=== PATIENT | female | born 1980 | race Caucasian/White ===

== ENCOUNTER → 2018-05-10 08:12 | Outpatient (CLI) | payer OTHER, SELFPAY ==
--- NOTE | 2018-05-10 | DI.ECHO.S_ITS ---
[facility] +---------+ : : [address] : : : : [id number] : : : : Phone: [phone]+ Echocardiogram Report + + :Name: KEVIN THOMPSON Study Date: 05/10/2018 Height: 64 in : :[facility] Exam Location: [facility] Weight: 189 lb : : Gender: Female BSA: 1.9 m2 : :: 1980 Age: 37 yrs BP: 125/70 mmHg: :Reason For Study: CHEST PAIN : : Performed By: Breonna Page : :Referring: FRANKO HERNANDEZ : + + Interpretation Summary 1. Normal left ventricular size, wall thickness and systolic function with an estimated EF of 60-65% 2. Normal right ventricular size and systolic function. The estimated right atrial pressure is low. 3. No valvular pathology appreciated. There is no old study for comparison Procedure: A two-dimensional transthoracic echocardiogram with color flow and Doppler was performed. The study quality was technically adequate. There is no prior echocardiogram noted for this patient. The patient was in normal sinus rhythm during the exam. Left Ventricle: The left ventricle is normal in size. There is normal left ventricular wall thickness. The ejection fraction is estimated to be 60-65%. No focal wall motion abnormalities appreciated. Assessment of diastolic parameters indicates normal left ventricular diastolic function and normal filling pressures. Right Ventricle: The right ventricle is normal in size and function. Atria: The left atrium is mildly dilated. Right atrial size is normal. No color doppler evidence for an ASD. Mitral Valve: The mitral valve is normal in structure and function. There is trace mitral regurgitation. Aortic Valve: The aortic valve is grossly normal. The aortic valve opens well. The valve appears trileaflet. No aortic regurgitation is present. Tricuspid Valve: The tricuspid valve leaflets are thin and pliable. There is a trace or physiologic amount of tricuspid regurgitation. The right ventricular systolic pressure is estimated at 18 mmHg assuming a right atrial pressure of 3 mm Hg. Pulmonic Valve: The pulmonic valve is not well visualized. Great Vessels: The aortic root is normal size. The ascending aorta is normal in size. The aortic arch is normal in size. The pulmonary is not well visualized. The IVC is of normal diameter and collapses greater than 50% with a sniff. This suggests a low right atrial pressure of 3 mm Hg. Pericardium/ Pleura There is no pericardial effusion. There is no pleural effusion. MMode/2D Measurements & Calculations LVIDd: 4.6 cm Ao root diam: 3.0 cm LVIDs: 2.6 cm asc Aorta Diam: 2.8 cm FS: 43.9 % Ao Arch Diam (Prox Trans): 2.4 cm EPSS: 0.11 cm IVSd: 0.88 cm LVPWd: 0.63 cm LV knox. diameter/BSA (cm/m^2): 2.4 LV sys. diameter/BSA (cm/m^2): 1.3 LA A2 area: 23.6 cm2 RA long axis: 4.6 cm LA A4 area: 20.5 cm2 RA area: 13.5 cm2 LA length (vol): 5.7 cm RA vol: 33.8 ml LA vol: 72.0 ml RA : 17.7 ml/m2 LA vol index: 37.7 ml/m2 IVC diam: 1.5 cm RVD1 (basal): 3.0 cm TAPSE: 2.5 cm Doppler Measurements & Calculations Ao V2 max: 130.5 cm/sec LVOT Max Rob: 83.2 cm/sec Ao V2 mean: 98.6 cm/sec LV V1 max P.8 mmHg Ao max P.8 mmHg LV V1 VTI: 18.6 cm Ao mean P.1 mmHg sev ratio: 0.64 Ao V2 VTI: 29.0 cm MV E max rob: 95.0 cm/sec TR max rob: 191.4 cm/sec MV A max rob: 38.3 cm/sec TR max P.7 mmHg MV E/A: 2.5 PA V2 max: 67.7 cm/sec Med Peak E' Rob: 10.9 cm/sec PA V2 mean: 52.8 cm/sec E/E' med: 8.7 PA mean P.2 mmHg Lat Peak E' Rob: 17.0 cm/sec PA Accel Time: 0.13 sec E/E' lat: 5.6 E/e' average: 7.1 MV dec time: 0.18 sec MV P1/2t: 52.9 msec MV P1/2t max rob: 95.8 cm/sec MVA(P1/2t): 4.2 cm2 Reading Physician:GONZALO
== END ==
PROVIDERS: Visit Provider Student in an Organized Health Care Education/Training Program
DX: R07.9 Chest pain, unspecified (principal)
CPT/HCPCS: 93306

== ENCOUNTER → 2018-05-31 12:04 | Outpatient (CLI) | payer OTHER, SELFPAY | PROVIDERS: PCP Student in an Organized Health Care Education/Training Program | DX: Z23 Encounter for immunization (principal) | CPT/HCPCS: 90471; 90686 ==

== ENCOUNTER 2018-08-31 20:12 | Emergency (ER) | payer OTHER, SELFPAY ==
[2018-08-31 20:17] VITALS: BP 116/84; PULSE 84; RESP 18; TEMP 36.6; O2SAT 100; BMI 31.7
--- NOTE | 2018-08-31 20:21 | DI.RAD.S_ITS ---
PROCEDURE: XR FINGER RT MIN 2V INDICATIONS: shut right thumb in door TECHNIQUE: AP hand, 2 views of the 1st digit acquired. COMPARISON: None. FINDINGS: Bones: No fractures or dislocations. No suspicious bony lesions. Soft tissues: No suspicious soft tissue calcifications. IMPRESSION: 1. No fracture or dislocation. Dictated by: Toy Astudillo M.D. on 08/31/2018 at 20:43 Approved by: Toy Astudillo M.D. on 08/31/2018 at 20:44
--- NOTE | 2018-08-31 21:20 | ED_ITS ---
HPI - Extremity Injury (Upper) <Kelly Harley PA-C - Last Filed: 08/31/18 21:33> General Chief Complaint: Extremity Injury, Upper Stated Complaint: RIGHT HAND THUMB MIGHT BE BROKEN Time Seen by Provider: 08/31/18 20:49 Source: patient Mode of arrival: ambulatory Limitations: no limitations History of Present Illness HPI narrative: This 37-year-old right-handed female closed her right thumb in a car door while she was holding the handle with that hand a couple of hours ago. She comes in due to concern for possible fracture. She states that the area is sore and throbbing somewhat. She has not noted any weakness or paresthesia. She does not have any cuts. She denies any other injury Related Data Home Medications Medication Instructions Recorded Confirmed biotin 10,000 mcg disintegrating 10,000 mcg PO DAILY 01/09/18 08/16/18 tablet bupropion HCl XL 150 mg 24 hr 150 mg PO QAM 01/09/18 08/16/18 tablet, extended release calcium carbonate 600 mg calcium 300 mg PO TID tab 01/09/18 08/16/18 (1,500 mg) tablet folic acid 800 mcg tablet 800 mcg PO DAILY 01/09/18 08/16/18 multivitamin capsule 1 cap PO DAILY 01/09/18 08/16/18 venlafaxine ER 75 mg 75 mg PO DAILY 01/09/18 08/16/18 capsule,extended release 24 hr zolpidem 10 mg tablet 10 mg PO BEDTIME PRN 01/09/18 08/16/18 Previous Rx's Medication Instructions Recorded benzonatate 100 mg capsule 100 mg PO TID PRN #20 cap 01/09/18 eletriptan 40 mg tablet 40 mg PO Q2-4H PRN #12 tab 05/29/18 zonisamide 25 mg capsule 25 mg PO DAILY #90 cap 07/12/18 onabotulinumtoxinA 200 unit 200 unit IM ONCE #1 each 07/25/18 solution for injection Allergies Allergy/AdvReac Type Severity Reaction Status Date / Time Opioids - Morphine Analogues Allergy Severe Chest Pain Verified 08/16/18 14:06 Review of Systems <Kelly Harley PA-C - Last Filed: 08/31/18 21:33> Review of Systems All systems reviewed & are unremarkable except as noted in HPI and below Exam <EDU Booth Last Filed: 08/31/18 21:33> Narrative Exam Narrative: GENERAL APPEARANCE: Patient sitting comfortably, in no distress. LUNGS: Clear to auscultation bilaterally. HEART: Rate and rhythm regular without murmur, normal S1 and S2, no S3 or S4. DERMATOLOGIC: There is a skin crease/indentation on the proximal right thumb pad with surrounding tenderness, but no laceration MUSCULOSKELETAL: Right hand and thumb no visible or palpable bony abnormality or effusion. She has full range of motion of the right thumb. Strength is intact against resistance in all macias NEUROVASCULAR: Right thumb is warm and pink, sensation grossly intact Initial Vital Signs Initial Vital Signs: Vital Signs Temperature 98 F 08/31/18 20:17 Pulse Rate 84 08/31/18 20:17 Respiratory Rate 18 08/31/18 20:17 Blood Pressure 116/84 08/31/18 20:17 Pulse Oximetry 100 08/31/18 20:17 <DO Johnathon Metcalf Last Filed: 09/01/18 02:22> Initial Vital Signs Initial Vital Signs: Vital Signs Temperature 98 F 08/31/18 20:17 Pulse Rate 84 08/31/18 20:17 Respiratory Rate 18 08/31/18 20:17 Blood Pressure 116/84 08/31/18 20:17 Pulse Oximetry 100 08/31/18 20:17 Course <EDU Booth Last Filed: 08/31/18 21:33> Orders Ordered: ED Orders 08/31/18 20:21 XR finger RT min 2V Stat Discontinued Medications Acetaminophen (Tylenol) 975 mg PO NOW ONE Stop: 08/31/18 21:21 Vital Signs - 8 hr 08/31/18 20:17 08/31/18 21:30 Temperature 98 F Pulse Rate 84 69 Respiratory Rate 18 16 Blood Pressure 116/84 Blood Pressure [Left Arm] 122/62 Pulse Oximetry 100 100 <DO Johnathon Metcalf Last Filed: 09/01/18 02:22> Orders Ordered: ED Orders 08/31/18 20:21 XR finger RT min 2V Stat Discontinued Medications Acetaminophen (Tylenol) 975 mg PO NOW ONE Stop: 08/31/18 21:21 Vital Signs - 8 hr 08/31/18 20:17 08/31/18 21:30 Temperature 98 F Pulse Rate 84 69 Respiratory Rate 18 16 Blood Pressure 116/84 Blood Pressure [Left Arm] 122/62 Pulse Oximetry 100 100 MDM - Extremity Injury (Upper) <Kelly Harley PA-C - Last Filed: 08/31/18 21:33> Imaging Data thumb: Radiologist's impression: BACK Finger X-Ray (Signed) Toy Astudillo - 08/31/18 Launch Image View Report History [address] [address] XRay Report Signed Patient: Hien Yeager MR#: [id number] : 1980 Acct:[id number] Age/Sex: 37 / F Date of Service: 08/31/18 Loc: ED Accession Number: [id number] Procedure: XR finger RT min 2V Ordering Provider: Salvatore Elliott D.O. PROCEDURE: XR FINGER RT MIN 2V INDICATIONS: shut right thumb in door TECHNIQUE: AP hand, 2 views of the 1st digit acquired. COMPARISON: None. FINDINGS: Bones: No fractures or dislocations. No suspicious bony lesions. Soft tissues: No suspicious soft tissue calcifications. IMPRESSION: 1. No fracture or dislocation. Dictated by: Toy Astudillo M.D. on 08/31/2018 at 20:43 Approved by: Toy Astudillo M.D. on 08/31/2018 at 20:44 Discharge Plan Departure Patient Disposition: Home Clinical Impression: Crush injury Discharge Date/Time: 08/31/18 21:37 Interventions: ED Discharge Assessment Last Done: 08/31/18 21:36 Instructions: DI for Crush Injury Activity Restrictions/Additional Instructions: On the x-ray your thumb does not appear to have any fracture or dislocation. Please continue Tylenol as needed for pain. Please continue ice this evening. We have splinted this for comfort and protection, continue that as needed for the next few days. Your tendon strength appears to be intact on exam today, please recheck with your PCP next week to reassess that less you are feeling like it is completely back to normal by then. Prescriptions: No Action venlafaxine [Effexor XR] 75 mg capsule,extended release 24hr 75 mg PO DAILY RF: 0 calcium carbonate [Calcium 600] 600 mg calcium (1,500 mg) tablet 300 mg PO TID RF: 0 zolpidem [Ambien] 10 mg tablet 10 mg PO BEDTIME PRNRF: 0 multivitamin capsule 1 cap PO DAILY RF: 0 folic acid 800 mcg tablet 800 mcg PO DAILY RF: 0 bupropion HCl [Wellbutrin XL] 150 mg tablet extended release 24 hr 150 mg PO QAM RF: 0 biotin 10,000 mcg tablet,disintegrating 10,000 mcg PO DAILY RF: 0 benzonatate [Tessalon Perles] 100 mg capsule 100 mg PO TID PRN (Reason: cough) Qty: 20 RF: 0 eletriptan 40 mg tablet 40 mg PO Q2-4H PRN (Reason: migraine headache) Qty: 12 RF: 11 onabotulinumtoxinA [Botox] 200 unit recon soln 200 unit IM ONCE Qty: 1 RF: 4 ketorolac 15 mg/mL solution 60 mg IM ONCE Qty: 4 RF: 0 ondansetron HCl (PF) 4 mg/2 mL solution 4 mg IM ONCE Qty: 2 RF: 0 zonisamide 25 mg capsule 25 mg PO DAILY Qty: 90 RF: 1 Referrals: Daiana Dhillon PA-C [Primary Care Provider] - <Salvatore Elliott DO - Last Filed: 09/01/18 02:22> Cosign ED Attending Mann Attestation: I was immediately available in the department for consultation. Documentation has been reviewed. I agree with assessment and plan.
[2018-08-31 21:30] VITALS: BP 122/62; PULSE 69; RESP 16; O2SAT 100
== END 2018-08-31 21:37 | disposition home or self-care (01) ==
PROVIDERS: Emergency Provider Internal Medicine; PCP Student in an Organized Health Care Education/Training Program
DX: S67.01XA Crushing injury of right thumb, initial encounter (principal); W23.0XXA Caught, crushed, jammed, or pinched between moving objects, initial encounter
CPT/HCPCS: 29130; 73140; 99282; 99283

== ENCOUNTER → 2018-10-10 16:56 | Outpatient (CLI) | payer OTHER, SELFPAY ==
--- NOTE | 2018-10-10 | DI.CT.S_ITS ---
PROCEDURE: CT ABDOMEN PELVIS W CON INDICATIONS: ABDOMINAL PAIN TECHNIQUE: After the administration of oral and intravenous contrast, 5 mm thick sections acquired from the diaphragms to the symphysis. 5 mm thick coronal and sagittal reformats were performed. For radiation dose reduction, the following was used: automated exposure control, adjustment of mA and/or kV according to patient size. COMPARISON: None. FINDINGS: Image quality: Excellent. ABDOMEN: Lung bases: Lung bases are clear. Heart size is normal. Solid organs: Liver is normal in size and enhancement. Gallbladder is surgically absent. Biliary system is non-dilated. Pancreas enhances normally. Spleen is normal in size and enhancement. No adrenal nodules. Kidneys are normal in size and enhancement, without hydronephrosis. Peritoneum and bowel: Post surgical changes are noted in epigastric region from prior gastric bypass surgery. Stomach, small bowel, and colon loops are normal in caliber and wall thickness. No free fluid or air. Mild fecal stasis throughout the colon is seen. Nodes and vessels: No retroperitoneal or mesenteric adenopathy. Aorta and inferior vena cava are normal in caliber. Miscellaneous: Small periumbilical hernia is seen containing fat only. PELVIS: Genitourinary: Bladder wall thickness is normal. Miscellaneous: No inguinal hernias or adenopathy. Bones: No suspicious bony lesions. No vertebral body compression fractures. IMPRESSION: 1. Prior cholecystectomy and gastric bypass surgery. No bowel obstruction. No acute inflammatory process is seen within the abdomen or pelvis. No free fluid or free air. Mild constipation. 2. No renal stone hydronephrosis. 3. Small periumbilical hernia containing fat only. Dictated by: Maurilio Hunter M.D. on 10/10/2018 at 19:42 Approved by: Maurilio Hunter M.D. on 10/10/2018 at 19:44
== END ==
PROVIDERS: PCP Student in an Organized Health Care Education/Training Program; Visit Provider Student in an Organized Health Care Education/Training Program
DX: R10.84 Generalized abdominal pain (principal); K42.9 Umbilical hernia without obstruction or gangrene; Z90.49 Acquired absence of other specified parts of digestive tract; Z98.84 Bariatric surgery status
CPT/HCPCS: 74177; Q9967

== ENCOUNTER → 2019-06-13 14:10 | Outpatient (CLI) | payer OTHER, SELFPAY | PROVIDERS: PCP Student in an Organized Health Care Education/Training Program | DX: Z23 Encounter for immunization (principal) | CPT/HCPCS: 90471; 90686 ==

== ENCOUNTER → 2019-07-29 15:41 | Outpatient (CLI) | payer OTHER, SELFPAY ==
[2019-07-29 17:21] LABS: Add Manual Diff / Slide Review NO; Basophils Absolute Auto 100 /uL (0-100); Basophils Percent Auto 0.7 % (0-2); Eosinophils Absolute Auto 400 /uL (0-450); Hematocrit 39.5 % (36-46); Hemoglobin 13.3 g/dL (12.0-16.0); Lymphocytes Absolute Auto 4200 /uL (1100-4500); Lymphocytes Percent Auto 35.3 % (25-40); Mean Corpuscular HGB Conc 33.7 % (30-36); Mean Corpuscular Hemoglobin 28.4 PG (26-34); Mean Corpuscular Volume 84.2 fL (80-100); Monocytes Absolute Auto 800 /uL (0-900); Monocytes Percent Auto 6.4 % (3-14); Neutrophils Absolute Auto 6400 /uL (1500-7000); Neutrophils Percent Auto 54.6 % (50-75); Platelet Count 341 X10^3/uL (150-400); Red Blood Cell Count 4.69 X10^6/uL (4.0-5.2); Red Cell Distribution Width 13.4 % (11.6-14.8); White Blood Cell Count 11.8 X10^3/uL (4.5-11.0)
[2019-07-29 17:52] LABS: Alanine Aminotransferase 21 IU/L (<35); Albumin 4.3 g/dL (3.5-5.0); Albumin Globulin Ratio 1.5 (1.0-2.8); Alkaline Phosphatase 80 U/L (38-126); Aspartate Aminotransferase 28 IU/L (14-36); BUN Creatinine Ratio 32.9 (6-22); Bilirubin Total 0.3 mg/dL (0.2-1.3); Blood Urea Nitrogen 23 mg/dL (7-17); Calcium 9.3 mg/dL (8.4-10.2); Carbon Dioxide 27 mmol/L (22-32); Chloride 103 mmol/L (98-107); Estimated Glomerular Filt Rate > 60.0 mL/min (>60); Globulin 2.8 g/dL (1.7-4.1); Glucose 86 mg/dL (70-100); HEMOLYSIS < 15 (0-50); Potassium 4.1 mmol/L (3.4-5.1); Sodium 138 mmol/L (137-145); Total Protein 7.1 g/dL (6.3-8.2)
== END ==
PROVIDERS: PCP Student in an Organized Health Care Education/Training Program; Visit Provider Student in an Organized Health Care Education/Training Program
DX: Z01.818 Encounter for other preprocedural examination (principal)
CPT/HCPCS: 36415; 80053; 85025

== ENCOUNTER 2019-09-11 15:37 | Emergency (ER) | payer OTHER, SELFPAY ==
[2019-09-11 15:41] VITALS: BP 118/81; PULSE 103; RESP 18; TEMP 36.8; O2SAT 94; BMI 30.9
--- NOTE | 2019-09-11 15:46 | DI.US.S_ITS ---
PROCEDURE: US PERIPH VENOUS LOW EXTREM LT INDICATIONS: LT LOWER LEG PAIN/SWELLING. HAD SURGERY 08/16 TECHNIQUE: Real-time imaging, as well as color and pulse Doppler interrogation, were performed of the lower extremity deep veins from the inguinal ligament to the popliteal fossa. COMPARISON: None. FINDINGS: There are filling defects within the common femoral, superficial femoral, and popliteal veins consistent with venous thrombosis. No definite flow demonstrated within the mid and distal superficial femoral vein to the popliteal vein, suggestive of occlusive thrombus. There is nonocclusive partial thrombosis of the proximal superficial femoral and common femoral veins. IMPRESSION: 1. Deep venous thrombosis demonstrated in the right lower extremity including apparent occlusive thrombus in the mid to distal superficial femoral and popliteal veins. Findings discussed with Dr. Shields on 09/11/19 at 4:30 PM. Dictated by: Toy Astudillo M.D. on 09/11/2019 at 16:23 Approved by: Toy Astudillo M.D. on 09/11/2019 at 16:30
[2019-09-11 16:30] VITALS: PULSE 89
--- NOTE | 2019-09-11 16:40 | ED.EXTPRO ---
HPI - Extremity Problem General Chief complaint: Extremity Problem,Nontraumatic Stated complaint: thinks she has a blood clot in her leg Time Seen by Provider: 09/11/19 15:40 Source: patient Mode of arrival: Ambulatory Limitations: no limitations History of Present Illness HPI Narrative: Patient comes to the emergency department complaining of pain and swelling in her left lower extremity. She states that she especially noticed the swelling this morning, but has been having some pain in her left groin and low back/buttock area for the last several days. The patient about 1 month ago had a tummy tuck surgery, and has been having to wear an abdominal binder since. The patient states she has been up and around over the last week and even went to work for couple of days. However, most of her activity has been getting around the house. The patient denies fevers or chills. No chest pain or shortness of breath. The patient has no history of DVT. There is no family history of DVT. Related Data Home Medications Medication Instructions Recorded Confirmed biotin 10,000 mcg disintegrating 10,000 mcg PO DAILY 01/09/18 08/14/19 tablet calcium carbonate 600 mg calcium 300 mg PO TID tab 01/09/18 08/14/19 (1,500 mg) tablet folic acid 800 mcg tablet 800 mcg PO DAILY 01/09/18 08/14/19 multivitamin 1 cap PO DAILY 01/09/18 08/14/19 alprazolam 1 mg tablet See Rx Instructions .ROUTE 05/28/19 08/14/19 .COMPLEX tab onabotulinumtoxinA 200 unit 200 unit IM ONCE each 05/28/19 08/14/19 solution for injection zonisamide 100 mg capsule See Rx Instructions .ROUTE 05/28/19 08/14/19 .COMPLEX cap Previous Rx's Medication Instructions Recorded erenumab-aooe 140 mg/mL 140 mg SUBCUT QMONTH #1 ml 02/12/19 subcutaneous auto-injector venlafaxine 75 mg capsule,extended 225 mg PO DAILY #90 cap 04/30/19 release 24 hr eletriptan 40 mg tablet See Rx Instructions PO .COMPLEX 06/12/19 #14 tab zolpidem 10 mg tablet 10 mg PO BEDTIME PRN #30 tab 08/13/19 apixaban [Eliquis] 5 mg PO BID #60 tab 09/11/19 Allergies Allergy/AdvReac Type Severity Reaction Status Date / Time Opioids - Morphine Analogues Allergy Severe Chest Pain Verified 09/11/19 15:40 Review of Systems Constitutional Constitutional: Denies chills, Denies fatigue, Denies fever(s), Denies frequent falls, Denies lethargy and Denies weakness Eyes Eyes: Denies change in vision, Denies eye discharge, Denies irritation and Denies loss of vision ENT Ears, Nose, Mouth, and Throat: Denies change in voice, Denies dizziness, Denies neck pain, Denies sore throat and Denies throat swelling Cardiovascular Cardiovascular: Denies chest pain, Denies irregular heart rhythm, Denies lightheadedness, Denies palpitations, Denies dyspnea, Denies dyspnea on exertion and Denies orthopnea Respiratory Respiratory: Denies cough, Denies dyspnea, Denies dyspnea on exertion and Denies wheezing Gastrointestinal Gastrointestinal: Denies abdominal pain, Denies change in bowel habits, Denies diarrhea, Denies nausea and Denies vomiting Genitourinary Genitourinary: Denies hematuria, Denies flank pain, Denies urinary incontinence and Denies urinary urgency Musculoskeletal Musculoskeletal: Denies back pain, Denies muscle weakness, Denies neck pain, Denies numbness and Denies tingling Comments: Leg swelling Integumentary/Breasts Skin/Breast: Denies pruritus, Denies erythema, Denies rash and Denies wounds Neurologic Neurologic: Denies behavioral changes, Denies confusion, Denies dizziness, Denies frequent falls, Denies loss of vision, Denies numbness, Denies tingling and Denies weakness Psychiatric Psychiatric: Denies anxiety, Denies behavioral changes, Denies confusion, Denies depression, Denies homicidal ideation and Denies suicidal ideation Endocrine Endocrine: Denies fatigue, Denies flushing and Denies palpitations Hematologic/Lymphatic Hematologic/Lymphatic: Denies easy bruising Allergic/Immunologic Allergic/Immunologic: Denies urticaria, Denies throat swelling and Denies wheezing Patient History Medical History Intractable migraine without aura and without status migrainosus (Chronic) Rheumatoid arthritis (Chronic) Surgical History History of gastric bypass (Resolved) Status post appendectomy (Resolved) Status post (Resolved) Status post cholecystectomy (Resolved) Status post hysterectomy (Resolved) Status post nasal septoplasty (Resolved) Family History Other Family history non-contributory Social History Smoking Status: Never smoker Smoking Status: Never smoker Substance Use Type: does not use Exam Initial Vital Signs Initial Vital Signs: Vital Signs Temperature 98.3 F 09/11/19 15:41 Pulse Rate 103 H 09/11/19 15:41 Respiratory Rate 18 09/11/19 15:41 Blood Pressure 118/81 09/11/19 15:41 Pulse Oximetry 94 09/11/19 15:41 Const General: cooperative and well developed Nutritional Appearance: well nourished HENMT Head: normocephalic and atraumatic Ears: external ears normal Nose: external nose normal and No nasal discharge Face and sinus: face symmetric and No dry mucous membranes Mouth: oral mucosae normal and moist mucous membranes Teeth and gingiva: dentition normal Eyes General: appearance normal, both eyes and all related structures Eyelids: eyelids normal Conjunctivae: conjunctivae normal Sclera: sclerae normal Pupils: PERRL EOM: EOM intact bilaterally Neck Neck: normal visual inspection, trachea midline, No lymphadenopathy, No midline deformity and No JVD Lymphatic: No lymphedema Chest Chest: normal inspection of the chest Resp Effort & Inspection: normal respiratory effort, able to speak in complete sentences, no respiratory distress and no use of accessory muscles Auscultation: clear to auscultation bilaterally, no rales, no rhonchi and no wheezes Cardio Rate: regular rate Rhythm: regular rhythm Heart Sounds: no click, no gallops, no murmurs and no rubs Pulses: normal peripheral pulses GI Inspection: non-distended Palpation: soft, no hepatosplenomegaly, No guarding, No pulsatile mass and No tender Auscultation: normal bowel sounds Back/Spine/Pelvis Back: No CVA tenderness Cervical Spine: cervical ROM normal and No pain with cervical ROM Thoracic/Lumbar Spine: thoracic and lumbar spine normal to inspection Skin General: no rashes or lesions noted, No jaundice and No petechiae Neuro General: alert, oriented x3, gait normal and no focal motor deficits Speech: speech normal Extrem General: full ROM and edema (Moderate, nonpitting, left lower leg and ankle) Other: Girth of left lower extremity grossly increased compared to right lower extremity. Psych Appearance: well kempt Mental Status: mental status grossly normal Attitude: cooperative Thought Content: normal and suicidality Judgment: judgment good Course Course Course Narrative: Patient was worked up with ultrasound of the left lower extremity, which did show DVT in the popliteal and common femoral veins, as well as in the mid to distal superficial femoral vein. Patient was given a dose of Lovenox in the emergency department. She was given a prescription for Eliquis, which she may start tomorrow. The patient does not have any symptoms consistent with pulmonary embolus, but she is familiar with the symptoms. We've discussed home management of the patient's symptoms, as well as the usual indications for return. Orders Ordered: ED Orders 09/11/19 15:46 US perip venous low extrem lt Stat Discontinued Medications Enoxaparin Sodium (Lovenox) 80 mg 1 mg/kg (80 mg) SUBCUT NOW ONE Stop: 09/11/19 16:28 Vital Signs Vital signs: Vital Signs - 8 hr 09/11/19 15:41 Temperature 98.3 F Pulse Rate 103 H Respiratory Rate 18 Blood Pressure 118/81 Pulse Oximetry 94 MDM - Extremity (Nontraumatic) Medical Records Attestation: I reviewed the patient's medical records. Imaging Data US - DVT: Radiologist's Impression: PROCEDURE: US PERIPH VENOUS LOW EXTREM LT INDICATIONS: LT LOWER LEG PAIN/SWELLING. HAD SURGERY 08/16 TECHNIQUE: Real-time imaging, as well as color and pulse Doppler interrogation, were performed of the lower extremity deep veins from the inguinal ligament to the popliteal fossa. COMPARISON: None. FINDINGS: There are filling defects within the common femoral, superficial femoral, and popliteal veins consistent with venous thrombosis. No definite flow demonstrated within the mid and distal superficial femoral vein to the popliteal vein, suggestive of occlusive thrombus. There is nonocclusive partial thrombosis of the proximal superficial femoral and common femoral veins. IMPRESSION: 1. Deep venous thrombosis demonstrated in the right lower extremity including apparent occlusive thrombus in the mid to distal superficial femoral and popliteal veins. Findings discussed with Dr. Shields on 09/11/19 at 4:30 PM. Dictated by: Toy Astudillo M.D. on 09/11/2019 at 16:23 Approved by: Toy Astudillo M.D. on 09/11/2019 at 16:30 Discharge Plan Departure Patient Disposition: Home Clinical Impression: Deep vein thrombosis of lower extremity Qualifiers: Affected thrombotic vein of extremity: unspecified vein of extremity Chronicity: acute Laterality: left Qualified Code(s): I82.402 - Acute embolism and thrombosis of unspecified deep veins of left lower extremity Discharge Date/Time: 09/11/19 16:58 Instructions: DI for Deep Vein Thrombosis Activity Restrictions/Additional Instructions: Please make an appointment with her primary care physician to be seen within the next 2 weeks for follow-up. Please go get your blood thinners tonight or tomorrow morning, and start them 1st thing in the morning. You've been given a dose of anticoagulant here in the emergency department, which will cover you until then. Prescriptions: New Eliquis 5 mg tablet 5 mg PO BID Qty: 60 RF: 0 No Action calcium carbonate [Calcium 600] 600 mg calcium (1,500 mg) tablet 300 mg PO TID RF: 0 multivitamin capsule 1 cap PO DAILY RF: 0 folic acid 800 mcg tablet 800 mcg PO DAILY RF: 0 biotin 10,000 mcg tablet,disintegrating 10,000 mcg PO DAILY RF: 0 venlafaxine [Effexor XR] 75 mg capsule,extended release 24hr 225 mg PO DAILY Qty: 90 RF: 3 Botox 200 unit recon soln 200 unit IM ONCE RF: 0 zonisamide 100 mg capsule See Rx Instructions .ROUTE .COMPLEX RF: 0 alprazolam 1 mg tablet See Rx Instructions .ROUTE .COMPLEX RF: 0 eletriptan 40 mg tablet See Rx Instructions PO .COMPLEX Qty: 14 RF: 2 zolpidem [Ambien] 10 mg tablet 10 mg PO BEDTIME PRN (Reason: insomnia) Qty: 30 RF: 0 Aimovig Autoinjector 140 mg/mL auto-injector 140 mg SUBCUT QMONTH Qty: 1 RF: 12 Referrals: [facility] [Provider Group] Rox Clark DO [Primary Care Provider] - Stand Alone Forms: Work Release Note
[2019-09-11] MEDS: ENOXAPARIN 100 MG/ML SYRINGE 80 MG SUBCUT (16:42)
[2019-09-11 16:56] VITALS: BP 123/67; PULSE 89; RESP 16
== END 2019-09-11 16:58 | disposition home or self-care (01) ==
PROVIDERS: Emergency Provider Emergency Medicine; PCP Obstetrics & Gynecology
DX: I82.432 Acute embolism and thrombosis of left popliteal vein (principal); I82.412 Acute embolism and thrombosis of left femoral vein; I82.4Z2 Acute embolism and thrombosis of unspecified deep veins of left distal lower extremity
CPT/HCPCS: 93971; 96372; 99283; J1650

== ENCOUNTER → 2019-10-01 09:37 | Outpatient (CLI) | payer OTHER, SELFPAY ==
--- NOTE | 2019-10-01 | DI.US.S_ITS ---
PROCEDURE: US PERIPH VENOUS LOW EXTREM LT INDICATIONS: ACUTE EMBOLISM AND THROMBOSIS OF UNSPECIFIED DEEP TECHNIQUE: Real-time imaging, as well as color and pulse Doppler interrogation, were performed of the lower extremity deep veins from the inguinal ligament to the popliteal fossa. COMPARISON: [facility], CT, CT ABDOMEN PELVIS W CON, 10/10/2018, 17:41. [facility], US, PERIP VENOUS LOW EXTREM LT, 09/11/2019, 16:10. FINDINGS: DVT is found at the greater saphenous vein proximally and the common femoral vein, with thrombosis seen in the superficial femoral vein distally and to a lesser degree, partially occlusive, at the middle third of the SFV. Partial thrombosis, nonocclusive, is present at the popliteal vein. IMPRESSION: Left lower extremity DVT both occlusive and partially occlusive involving the popliteal vein cephalad as discussed above. Dictated by: Shant Tejada M.D. on 10/01/2019 at 13:18 Approved by: Shant Tejada M.D. on 10/01/2019 at 13:19
== END ==
PROVIDERS: PCP Obstetrics & Gynecology; Referring Provider Obstetrics & Gynecology; Visit Provider Obstetrics & Gynecology
DX: I82.492 Acute embolism and thrombosis of other specified deep vein of left lower extremity (principal); I82.412 Acute embolism and thrombosis of left femoral vein; I82.432 Acute embolism and thrombosis of left popliteal vein
CPT/HCPCS: 93971

== ENCOUNTER → 2019-10-03 13:57 | Outpatient (CLI) | payer OTHER, SELFPAY ==
[2019-10-03 17:14] LABS: INR 1.3 (0.9-1.3); Prothrombin Time 14.5 SECONDS (10.1-12.7)
[2019-10-03 17:17] LABS: PTT Partial Thromboplastin Tim 42 SECONDS (26.4-36.2)
[2019-10-07 16:11] LABS: PTT-LA Screen 37 seconds (< OR = 40); dDRVVT Screen 40 seconds (< OR = 45)
[2019-10-08 12:31] LABS: Homocysteine 11.5 umol/L (< 10.4)
[2019-10-08 16:26] LABS: B2-Glycoprotein I IgA AB < 9 SAU (< OR = 20); B2-Glycoprotein I IgG AB < 9 SGU (< OR = 20); B2-Glycoprotein I IgM AB < 9 SMU (< OR = 20); Cardiolipin Ab IgA <11 APL; Cardiolipin Ab IgG <14 GPL; Cardiolipin Ab IgM <12 MPL
== END ==
PROVIDERS: PCP Obstetrics & Gynecology; Referring Provider Obstetrics & Gynecology; Visit Provider Obstetrics & Gynecology
DX: I82.402 Acute embolism and thrombosis of unspecified deep veins of left lower extremity (principal)
CPT/HCPCS: 36415; 81240; 83090; 83516; 85300; 85307; 85420; 85597; 85610; 85613; 85730; 86146; 86147

== ENCOUNTER 2019-10-07 07:34 | Emergency (ER) | payer OTHER, SELFPAY ==
[2019-10-07 07:51] VITALS: BP 120/76; PULSE 90; RESP 15; TEMP 36.1; O2SAT 100
--- NOTE | 2019-10-07 07:51 | ED.GENADULT ---
HPI - General Adult General Chief complaint: Shortness of Breath/Dyspnea Stated complaint: blood clots in leg,shortness of breath Time Seen by Provider: 10/07/19 07:41 Source: patient Mode of arrival: Ambulatory Limitations: no limitations History of Present Illness HPI narrative: 39-year-old female with a known left lower extremity DVT diagnosed in this department on September 11, 2019. Was given a shot of Lovenox and started on Eliquis. Patient states she has been taking her Eliquis on a daily basis. She had a follow-up ultrasound approximately 1 week ago which showed continued left lower extremity clots. States on Monday her left lower extremity swelling up but that seems of improved. States that yesterday she had a very short episode of shortness of breath but that completely resolved. Woke up this morning with continued shortness of breath. Feels like that she can't take a deep breath. No chest pain. Concerned about a blood clot. Has not tried anything for symptoms prior to arrival Related Data Home Medications Medication Instructions Recorded Confirmed biotin 10,000 mcg disintegrating 10,000 mcg PO DAILY 01/09/18 08/14/19 tablet calcium carbonate 600 mg calcium 300 mg PO TID tab 01/09/18 08/14/19 (1,500 mg) tablet folic acid 800 mcg tablet 800 mcg PO DAILY 01/09/18 08/14/19 multivitamin 1 cap PO DAILY 01/09/18 08/14/19 alprazolam 1 mg tablet See Rx Instructions .ROUTE 05/28/19 08/14/19 .COMPLEX tab onabotulinumtoxinA 200 unit 200 unit IM ONCE each 05/28/19 08/14/19 solution for injection zonisamide 100 mg capsule See Rx Instructions .ROUTE 05/28/19 08/14/19 .COMPLEX cap Previous Rx's Medication Instructions Recorded erenumab-aooe 140 mg/mL 140 mg SUBCUT QMONTH #1 ml 02/12/19 subcutaneous auto-injector venlafaxine 75 mg capsule,extended 225 mg PO DAILY #90 cap 04/30/19 release 24 hr eletriptan 40 mg tablet See Rx Instructions PO .COMPLEX 06/12/19 #14 tab zolpidem 10 mg tablet 10 mg PO BEDTIME PRN #30 tab 08/13/19 apixaban [Eliquis] 5 mg PO BID #60 tab 09/11/19 Allergies Allergy/AdvReac Type Severity Reaction Status Date / Time Opioids - Morphine Analogues Allergy Severe Chest Pain Verified 09/11/19 15:40 Review of Systems Constitutional Constitutional: Denies fever(s) and Denies headache(s) ENT Ears, Nose, Mouth, and Throat: Denies headache(s) Cardiovascular Cardiovascular: Denies chest pain and Reports dyspnea Respiratory Respiratory: Denies cough and Reports dyspnea Gastrointestinal Gastrointestinal: Denies abdominal pain, Denies nausea and Denies vomiting Musculoskeletal Musculoskeletal: Denies myalgias and Denies arthralgias Integumentary/Breasts Skin/Breast: Denies lesions and Denies rash Neurologic Neurologic: Denies behavioral changes and Denies headache(s) Psychiatric Psychiatric: Denies behavioral changes Hematologic/Lymphatic Comments: On Eliquis Allergic/Immunologic Allergic/Immunologic: Denies urticaria Patient History Medical History Intractable migraine without aura and without status migrainosus (Chronic) Rheumatoid arthritis (Chronic) Social History Smoking Status: Never smoker Smoking Status: Never smoker Substance Use Type: does not use Exam Initial Vital Signs Initial Vital Signs: Vital Signs Temperature 97 F L 10/07/19 07:51 Pulse Rate 90 10/07/19 07:51 Respiratory Rate 15 10/07/19 07:51 Blood Pressure 120/76 10/07/19 07:51 Pulse Oximetry 100 10/07/19 07:51 Const General: cooperative, comfortable and well developed Limitations: mental status not altered HENWA Head: normal to inspection and normocephalic Chest Chest: normal inspection of the chest Resp Effort & Inspection: normal respiratory effort and tachypneic Auscultation: clear to auscultation bilaterally Cardio Rate: tachycardic Rhythm: regular rhythm Pulses: radial pulses present GI Inspection: non-distended Skin Lesions: no lesions Rashes: no rashes Neuro General: alert and awake Cognition: normal cognition Speech: speech normal Extrem General: normal to inspection, capillary refill normal and No edema Psych Appearance: grossly normal and well kempt Scores GCS [place] coma scale eye opening: Spontaneous [place] coma scale verbal response: Orientated [place] coma scale motor response: Obey commands [place] coma scale total score: 15 PERC Score Age greater than or equal to 50 years: No Heart rate greater than or equal to 100 bpm: Yes Room Air O2 Sat less than 95%: No Unilateral leg swelling: No Recent trauma or surgery: No Hemoptysis: No Prior PE or DVT: Yes Hormone Use: No Total PERC Score: 2 Course Orders Ordered: ED Orders 10/07/19 07:44 EKG-12 Lead Stat 10/07/19 07:52 Complete Blood Count AUTO DIFF Stat Comprehensive Metabolic Panel Stat Lipase Stat NT-proBNP (BNP-Adult 18+) Stat Partial Thromboplastin Time Stat Test Serum,Qual Stat Prothrombin Time INR Stat Troponin I Stat 10/07/19 08:14 CT angio chest PE protocol Stat Sodium Chloride (Normal Saline 0.9%) 1,000 mls @ 500 mls/hr IV BOLUS ONE Stop: 10/07/19 09:41 Last Admin: 10/07/19 09:12 Dose: 500 mls/hr Documented by: PARAM Vital Signs Vital signs: Vital Signs - 8 hr 10/07/19 07:51 Temperature 97 F L Pulse Rate 90 Respiratory Rate 15 Blood Pressure 120/76 Pulse Oximetry 100 Medical Decision Making Lab Data Lab results reviewed: Yes I reviewed the patient's lab results. Result diagrams: 10/07/19 07:52 10/07/19 07:52 Labs: Lab Results 10/07/19 10/07/19 10/07/19 Range/Units 07:52 07:52 07:52 WBC 10.2 (4.5-11.0) X10^3/uL RBC 4.80 (4.0-5.2) X10^6/uL Hgb 11.6 L (12.0-16.0) g/dL Hct 36.4 (36-46) % MCV 75.9 L (80-100) fL MCH 24.1 L (26-34) PG MCHC 31.8 (30-36) % RDW 16.3 H (11.6-14.8) % Plt Count 508 H (150-400) X10^3/uL Neut % (Auto) 45.6 L (50-75) % Lymph % (Auto) 39.8 (25-40) % [place] % (Auto) 8.5 (3-14) % Eos % (Auto) 4.7 H (2-4) % Baso % (Auto) 1.4 (0-2) % Neut # (Auto) 4600 (6710-8114) /uL Lymph # (Auto) 4100 (0335-4503) /uL [place] # (Auto) 900 (0-900) /uL Eos # (Auto) 500 H (0-450) /uL Baso # (Auto) 100 (0-100) /uL PT 14.2 H (10.1-12.7) SECONDS INR 1.2 (0.9-1.3) APTT 41 H (26.4-36.2) SECONDS Sodium 140 (137-145) mmol/L Potassium 2.9 L (3.4-5.1) mmol/L Chloride 107 (98-107) mmol/L Carbon Dioxide 27 (22-32) mmol/L BUN 13 (7-17) mg/dL Creatinine 0.60 (0.52-1.04) mg/dL Estimated GFR > 60.0 (>60) mL/min BUN/Creatinine Ratio 21.7 (6-22) Glucose 51 L (70-100) mg/dL Calcium 9.3 (8.4-10.2) mg/dL Total Bilirubin 0.2 (0.2-1.3) mg/dL AST 34 (14-36) IU/L ALT 20 (<35) IU/L Alkaline Phosphatase 147 H (38-126) U/L Troponin I < 0.012 (0.01-0.034) ng/mL NT-Pro-B Natriuret Pep 26 (<125) pg/mL Total Protein 7.2 (6.3-8.2) g/dL Albumin 4.1 (3.5-5.0) g/dL Globulin 3.1 (1.7-4.1) g/dL Albumin/Globulin Ratio 1.3 (1.0-2.8) Lipase 99 (23-300) U/L Serum , Qual (Negative) 10/07/19 Range/Units 07:52 WBC (4.5-11.0) X10^3/uL RBC (4.0-5.2) X10^6/uL Hgb (12.0-16.0) g/dL Hct (36-46) % MCV (80-100) fL MCH (26-34) PG MCHC (30-36) % RDW (11.6-14.8) % Plt Count (150-400) X10^3/uL Neut % (Auto) (50-75) % Lymph % (Auto) (25-40) % [place] % (Auto) (3-14) % Eos % (Auto) (2-4) % Baso % (Auto) (0-2) % Neut # (Auto) (3709-2266) /uL Lymph # (Auto) (6629-1245) /uL [place] # (Auto) (0-900) /uL Eos # (Auto) (0-450) /uL Baso # (Auto) (0-100) /uL PT (10.1-12.7) SECONDS INR (0.9-1.3) APTT (26.4-36.2) SECONDS Sodium (137-145) mmol/L Potassium (3.4-5.1) mmol/L Chloride (98-107) mmol/L Carbon Dioxide (22-32) mmol/L BUN (7-17) mg/dL Creatinine (0.52-1.04) mg/dL Estimated GFR (>60) mL/min BUN/Creatinine Ratio (6-22) Glucose (70-100) mg/dL Calcium (8.4-10.2) mg/dL Total Bilirubin (0.2-1.3) mg/dL AST (14-36) IU/L ALT (<35) IU/L Alkaline Phosphatase (38-126) U/L Troponin I (0.01-0.034) ng/mL NT-Pro-B Natriuret Pep (<125) pg/mL Total Protein (6.3-8.2) g/dL Albumin (3.5-5.0) g/dL Globulin (1.7-4.1) g/dL Albumin/Globulin Ratio (1.0-2.8) Lipase (23-300) U/L Serum , Qual Negative (Negative) Imaging Data CT scan - chest: Radiologist's Impression: [address] [address] [address] Scan Report Signed Patient: Hien Yeager EMR#: [id number] : 1980Acct:[id number] Age/Sex: 39 / FDate of Service: 10/07/19 Loc: ED Accession Number: [id number] Procedure: CT angio chest PE protocol Ordering Provider: Kristian Delcid D.O. PROCEDURE: CT ANGIO CHEST PE PROTOCOL INDICATIONS: Known DVT with shortness of breath TECHNIQUE: After the administration of intravenous contrast, 2 mm thick sections acquired from the pulmonary apices to the posterior costophrenic angles. 3-dimensional maximum intensity projection (MIP) coronal and sagittal reformats were then acquired through the thorax. For radiation dose reduction, the following was used: automated exposure control, adjustment of mA and/or kV according to patient size. COMPARISON: [facility], US, US PERIPH VENOUS LOW EXTREM LT, 10/01/2019, 10:04. [facility], CT, CT ABDOMEN PELVIS W CON, 10/10/2018, 17:41. FINDINGS: Image quality: Excellent. Pulmonary arteries: Pulmonary arteries are normal in size, and demonstrate no intraluminal filling defects to suggest central pulmonary embolism. Lungs and pleura: Lungs are clear. No pleural effusions or pneumothorax. Central and peripheral airways are patent. Mediastinum: Heart size is normal, without pericardial effusion. No mediastinal or hilar adenopathy. Thoracic aorta is normal in caliber and enhancement. Esophagus is normal in caliber, without hiatal hernia. Bones and chest wall: No suspicious bony lesions. Ribs and thoracic spine appear intact throughout. Thyroid gland demonstrates no significant CT abnormality. No axillary or supraclavicular adenopathy. Abdomen: Cholecystectomy and gastric bypass surgery changes can be seen. The visualized portions of the upper abdominal structures are otherwise unremarkable for imaging technique. IMPRESSION: Negative for pulmonary embolism. Clear lungs. Incidental note is made of: Cholecystectomy Gastric bypass surgery Dictated by: Timbo Navarro M.D. on 10/07/2019 at 8:18 Approved by: Timbo Navarro M.D. on 10/07/2019 at 8:20 ECG Data Attestation: I personally reviewed and interpreted this ECG as follows: Prior ECG tracings: not available for review Interpretation: Sinus tachycardia Ventricular rate 100 Normal axis Normal QRS Normal QTC No ST T wave changes MDM Narrative Medical decision making narrative: CTA shows no signs of pneumonia or pulmonary embolism. She is not hypoxic. Not hypotensive. Is currently on anticoagulation for the known DVT. I did discuss this with her. Unsure the exact etiology of her symptoms. For could very well be anxiety related to the swelling of her left lower extremity in the fact that she had a DVT and was told that if she ever had shortness of breath that could potentially have been a pulmonary embolism. She did admit that this may be an anxiety issue. Informed her that she should contact her primary provider for further workup. She will continue with the Eliquis. She was given return precautions. She expressed understanding and agreement with plan. Discharge Plan Departure Patient Disposition: Home Clinical Impression: Shortness of Breath Instructions: How to Manage Shortness of Breath Activity Restrictions/Additional Instructions: Continue all of your medications as directed. I do recommend that you talk with your primary provider about further evaluation. Return to the emergency department for any new or worsening symptoms Prescriptions: No Action calcium carbonate [Calcium 600] 600 mg calcium (1,500 mg) tablet 300 mg PO TID RF: 0 multivitamin capsule 1 cap PO DAILY RF: 0 folic acid 800 mcg tablet 800 mcg PO DAILY RF: 0 biotin 10,000 mcg tablet,disintegrating 10,000 mcg PO DAILY RF: 0 venlafaxine [Effexor XR] 75 mg capsule,extended release 24hr 225 mg PO DAILY Qty: 90 RF: 3 Botox 200 unit recon soln 200 unit IM ONCE RF: 0 zonisamide 100 mg capsule See Rx Instructions .ROUTE .COMPLEX RF: 0 alprazolam 1 mg tablet See Rx Instructions .ROUTE .COMPLEX RF: 0 eletriptan 40 mg tablet See Rx Instructions PO .COMPLEX Qty: 14 RF: 2 zolpidem [Ambien] 10 mg tablet 10 mg PO BEDTIME PRN (Reason: insomnia) Qty: 30 RF: 0 Eliquis 5 mg tablet 5 mg PO BID Qty: 60 RF: 0 Aimovig Autoinjector 140 mg/mL auto-injector 140 mg SUBCUT QMONTH Qty: 1 RF: 12 Referrals: Rox Clark DO [Primary Care Provider] -
[2019-10-07 07:56] LABS: Add Manual Diff / Slide Review NO; Basophils Absolute Auto 100 /uL (0-100); Basophils Percent Auto 1.4 % (0-2); Eosinophils Absolute Auto 500 /uL (0-450); Eosinophils Percent Auto 4.7 % (2-4); Hematocrit 36.4 % (36-46); Hemoglobin 11.6 g/dL (12.0-16.0); Lymphocytes Absolute Auto 4100 /uL (1100-4500); Lymphocytes Percent Auto 39.8 % (25-40); Mean Corpuscular HGB Conc 31.8 % (30-36); Mean Corpuscular Hemoglobin 24.1 PG (26-34); Mean Corpuscular Volume 75.9 fL (80-100); Monocytes Absolute Auto 900 /uL (0-900); Monocytes Percent Auto 8.5 % (3-14); Neutrophils Absolute Auto 4600 /uL (1500-7000); Neutrophils Percent Auto 45.6 % (50-75); Platelet Count 508 X10^3/uL (150-400); Red Cell Distribution Width 16.3 % (11.6-14.8); White Blood Cell Count 10.2 X10^3/uL (4.5-11.0)
[2019-10-07 08:04] LABS: INR 1.2 (0.9-1.3); Prothrombin Time 14.2 SECONDS (10.1-12.7)
[2019-10-07 08:07] LABS: PTT Partial Thromboplastin Tim 41 SECONDS (26.4-36.2)
[2019-10-07 08:09] LABS: Alanine Aminotransferase 20 IU/L (<35); Albumin 4.1 g/dL (3.5-5.0); Albumin Globulin Ratio 1.3 (1.0-2.8); Alkaline Phosphatase 147 U/L (38-126); Aspartate Aminotransferase 34 IU/L (14-36); BUN Creatinine Ratio 21.7 (6-22); Bilirubin Total 0.2 mg/dL (0.2-1.3); Blood Urea Nitrogen 13 mg/dL (7-17); Calcium 9.3 mg/dL (8.4-10.2); Carbon Dioxide 27 mmol/L (22-32); Chloride 107 mmol/L (98-107); Estimated Glomerular Filt Rate > 60.0 mL/min (>60); Globulin 3.1 g/dL (1.7-4.1); Glucose 51 mg/dL (70-100); HEMOLYSIS < 15 (0-50); Lipase 99 U/L (23-300); Potassium 2.9 mmol/L (3.4-5.1); Sodium 140 mmol/L (137-145); Total Protein 7.2 g/dL (6.3-8.2)
--- NOTE | 2019-10-07 08:14 | DI.CT.S_ITS ---
PROCEDURE: CT ANGIO CHEST PE PROTOCOL INDICATIONS: Known DVT with shortness of breath TECHNIQUE: After the administration of intravenous contrast, 2 mm thick sections acquired from the pulmonary apices to the posterior costophrenic angles. 3-dimensional maximum intensity projection (MIP) coronal and sagittal reformats were then acquired through the thorax. For radiation dose reduction, the following was used: automated exposure control, adjustment of mA and/or kV according to patient size. COMPARISON: [facility], US, US PERIPH VENOUS LOW EXTREM LT, 10/01/2019, 10:04. [facility], CT, CT ABDOMEN PELVIS W CON, 10/10/2018, 17:41. FINDINGS: Image quality: Excellent. Pulmonary arteries: Pulmonary arteries are normal in size, and demonstrate no intraluminal filling defects to suggest central pulmonary embolism. Lungs and pleura: Lungs are clear. No pleural effusions or pneumothorax. Central and peripheral airways are patent. Mediastinum: Heart size is normal, without pericardial effusion. No mediastinal or hilar adenopathy. Thoracic aorta is normal in caliber and enhancement. Esophagus is normal in caliber, without hiatal hernia. Bones and chest wall: No suspicious bony lesions. Ribs and thoracic spine appear intact throughout. Thyroid gland demonstrates no significant CT abnormality. No axillary or supraclavicular adenopathy. Abdomen: Cholecystectomy and gastric bypass surgery changes can be seen. The visualized portions of the upper abdominal structures are otherwise unremarkable for imaging technique. IMPRESSION: Negative for pulmonary embolism. Clear lungs. Incidental note is made of: Cholecystectomy Gastric bypass surgery Dictated by: Timbo Navarro M.D. on 10/07/2019 at 8:18 Approved by: Timbo Navarro M.D. on 10/07/2019 at 8:20
[2019-10-07 08:18] LABS: Pregnancy Test Serum,Qual Negative (Negative)
[2019-10-07 08:21] LABS: NT-proBNP (BNP-Adult 18+) 26 pg/mL (<125); Troponin I < 0.012 ng/mL (0.01-0.034)
[2019-10-07] MEDS: SODIUM CHLORIDE 0.9% 1,000 ML 500 ML IV (09:12)
[2019-10-07 09:30] VITALS: BP 104/62; PULSE 76; RESP 13; O2SAT 99
== END 2019-10-07 10:30 | disposition home or self-care (01) ==
PROVIDERS: Emergency Provider Emergency Medicine; PCP Obstetrics & Gynecology
DX: R06.02 Shortness of breath (principal); R00.0 Tachycardia, unspecified
CPT/HCPCS: 36415; 71275; 80053; 83690; 83880; 84484; 84703; 85025; 85610; 85730; 93005; 96360; 99284; 99285; Q9967

== ENCOUNTER → 2019-10-10 07:32 | Outpatient (CLI) | payer OTHER, SELFPAY ==
--- NOTE | 2019-10-10 | DI.US.S_ITS ---
PROCEDURE: [facility] VENOUS LOW EXTREM LT INDICATIONS: LEFT LEG DVT TECHNIQUE: Real-time imaging, as well as color and pulse Doppler interrogation, were performed of the lower extremity deep veins from the inguinal ligament to the popliteal fossa. COMPARISON: [facility], [facility] VENOUS LOW EXTREM LT, 09/11/2019, 16:10. [facility], [facility] VENOUS LOW EXTREM LT, 10/01/2019, 10:04. FINDINGS: Minimal residual thrombus can be seen within the proximal greater saphenous vein. Within the common femoral vein, there is residual non-occlusive thrombus seen, with incomplete compressibility. The profunda femoris vein demonstrates no thrombus. The superficial femoral vein is unremarkable. IMPRESSION: Residual nonocclusive chronic venous thrombus is seen proximally. Dictated by: Timbo Navarro M.D. on 10/10/2019 at 13:18 Approved by: Timbo Navarro M.D. on 10/10/2019 at 13:20
== END ==
PROVIDERS: PCP Obstetrics & Gynecology; Referring Provider Obstetrics & Gynecology; Visit Provider Obstetrics & Gynecology
DX: I82.412 Acute embolism and thrombosis of left femoral vein (principal)
CPT/HCPCS: 93971

== ENCOUNTER → 2019-10-24 07:37 | Outpatient (CLI) | payer OTHER, SELFPAY ==
--- NOTE | 2019-10-24 | DI.US.S_ITS ---
PROCEDURE: PERIP VENOUS LOW EXTREM LT INDICATIONS: Acute embolism and thrombosis TECHNIQUE: Real-time imaging, as well as color and pulse Doppler interrogation, were performed of the lower extremity deep veins from the inguinal ligament to the popliteal fossa. COMPARISON: [facility], [facility] VENOUS LOW EXTREM LT, 09/11/2019, 16:10. [facility], [facility] VENOUS LOW EXTREM LT, 10/01/2019, 10:04. [facility], PERIP VENOUS LOW EXTREM LT, 10/10/2019, 8:06. FINDINGS: There is a small amount of residual nonocclusive thrombus within the left common femoral vein. No additional findings of deep venous thrombosis can be seen. IMPRESSION: Improved examination, with a small amount of nonocclusive, chronic, resolving deep venous thrombosis within the left common femoral vein. Dictated by: Timbo Navarro M.D. on 10/24/2019 at 12:06 Approved by: Timbo Navarro M.D. on 10/24/2019 at 12:10
== END ==
PROVIDERS: PCP Obstetrics & Gynecology; Referring Provider Obstetrics & Gynecology; Visit Provider Obstetrics & Gynecology
DX: I82.412 Acute embolism and thrombosis of left femoral vein (principal)
CPT/HCPCS: 93971

== ENCOUNTER → 2019-11-27 14:11 | Outpatient (CLI) | payer OTHER, SELFPAY ==
--- NOTE | 2019-11-27 14:13 | DI.US.S_ITS ---
PROCEDURE: PERIP VENOUS LOW EXTREM LT INDICATIONS: FOLLOW UP LEFT LEG DVT TECHNIQUE: Real-time imaging, as well as color and pulse Doppler interrogation, were performed of the lower extremity deep veins from the inguinal ligament to the popliteal fossa. COMPARISON: [facility], [facility] VENOUS LOW EXTREM LT, 09/11/2019, 16:10. [facility], [facility] VENOUS LOW EXTREM LT, 10/01/2019, 10:04. [facility], [facility] VENOUS LOW EXTREM LT, 10/10/2019, 8:06. [facility], [facility] VENOUS LOW EXTREM LT, 10/24/2019, 8:08. FINDINGS: A small amount of nonocclusive thrombus can be seen within the common femoral vein. This is not significantly changed compared to the prior examination. No additional findings of deep venous thrombosis can be seen. IMPRESSION: Stable examination demonstrating stable residual thrombus within the common femoral vein. Dictated by: Timbo Navarro M.D. on 11/27/2019 at 14:05 Approved by: Timbo Navarro M.D. on 11/27/2019 at 14:08
== END ==
PROVIDERS: PCP Obstetrics & Gynecology; Referring Provider Obstetrics & Gynecology; Visit Provider Obstetrics & Gynecology
DX: I82.412 Acute embolism and thrombosis of left femoral vein (principal)
CPT/HCPCS: 93971

== ENCOUNTER → 2020-01-02 11:09 | Outpatient (CLI) | payer OTHER, SELFPAY ==
--- NOTE | 2020-01-02 | DI.US.S_ITS ---
PROCEDURE: [facility] VENOUS LOW EXTREM LT INDICATIONS: ACUTE EMBOLISM AND THROMBUS TECHNIQUE: Real-time imaging, as well as color and pulse Doppler interrogation, were performed of the lower extremity deep veins from the inguinal ligament to the popliteal fossa. COMPARISON: [facility], [facility] VENOUS LOW EXTREM LT, 10/24/2019, 8:08. [facility], [facility] VENOUS LOW EXTREM LT, 11/27/2019, 14:40. FINDINGS: Chronic deep venous thrombus present within the common femoral vein. The femoral and popliteal veins are normally compressible, and free of intraluminal thrombus. Color and pulse Doppler demonstrate normal phasic intraluminal flow. There is normal augmentation response to distal compression maneuver. IMPRESSION: Redemonstrated deep venous thrombus present within the left common femoral vein. Dictated by: Martin Santos M.D. on 01/02/2020 at 14:32 Approved by: Martin Santos M.D. on 01/02/2020 at 14:34
== END ==
PROVIDERS: PCP Obstetrics & Gynecology; Referring Provider Obstetrics & Gynecology; Visit Provider Obstetrics & Gynecology
DX: I82.412 Acute embolism and thrombosis of left femoral vein (principal)
CPT/HCPCS: 93971

== ENCOUNTER → 2020-02-04 09:40 | Outpatient (CLI) | payer OTHER, SELFPAY ==
--- NOTE | 2020-02-04 | DI.US.S_ITS ---
PROCEDURE: PERIP VENOUS LOW EXTREM LT INDICATIONS: THROMBOSIS TECHNIQUE: Real-time imaging, as well as color and pulse Doppler interrogation, were performed of the lower extremity deep veins from the inguinal ligament to the popliteal fossa. COMPARISON: [facility], [facility] VENOUS LOW EXTREM LT, 11/27/2019, 14:40. [facility] with [facility], [facility] VENOUS LOW EXTREM LT, 10/24/2019, 8:08. [facility] with [facility], [facility] VENOUS LOW EXTREM LT, 10/10/2019, 8:06. [facility]ed with [facility], [facility] VENOUS LOW EXTREM LT, 01/02/2020, 11:36. FINDINGS: There is again seen nonocclusive thrombus throughout the left common femoral vein. Otherwise, no findings of left lower extremity deep venous thrombosis. IMPRESSION: Persistent, stable nonocclusive thrombus throughout the left common femoral vein. Dictated by: Timbo Navarro M.D. on 02/04/2020 at 11:34 Approved by: Timbo Navarro M.D. on 02/04/2020 at 11:35
== END ==
PROVIDERS: PCP Obstetrics & Gynecology; Referring Provider Obstetrics & Gynecology; Visit Provider Obstetrics & Gynecology
DX: I82.412 Acute embolism and thrombosis of left femoral vein (principal)
CPT/HCPCS: 93971

== ENCOUNTER 2020-02-07 12:20 | Emergency (ER) | payer OTHER, SELFPAY ==
[2020-02-07 13:01] VITALS: BP 120/59; PULSE 73; RESP 16; TEMP 36.9; O2SAT 98
[2020-02-07 13:03] LABS: Add Manual Diff / Slide Review NO; Basophils Absolute Auto 100 /uL (0-100); Basophils Percent Auto 0.7 % (0-2); Eosinophils Absolute Auto 300 /uL (0-450); Eosinophils Percent Auto 2.4 % (2-4); Hematocrit 36.4 % (36-46); Lymphocytes Absolute Auto 4100 /uL (1100-4500); Lymphocytes Percent Auto 36.5 % (25-40); Mean Corpuscular Hemoglobin 26.2 PG (26-34); Mean Corpuscular Volume 79.5 fL (80-100); Monocytes Absolute Auto 800 /uL (0-900); Monocytes Percent Auto 6.8 % (3-14); Neutrophils Absolute Auto 6000 /uL (1500-7000); Neutrophils Percent Auto 53.6 % (50-75); Platelet Count 339 X10^3/uL (150-400); Red Blood Cell Count 4.58 X10^6/uL (4.0-5.2); Red Cell Distribution Width 17.9 % (11.6-14.8); White Blood Cell Count 11.3 X10^3/uL (4.5-11.0)
[2020-02-07] MEDS: SODIUM CHLORIDE 0.9% 1,000 ML 1000 ML IV (13:07)
[2020-02-07] MEDS: ONDANSETRON 4 MG/2 ML INJ IV (13:08)
[2020-02-07] MEDS: HYDROMORPHONE 1 MG INJ IV ×2 (13:08→15:14)
[2020-02-07 13:12] LABS: INR 1.2 (0.9-1.3); Prothrombin Time 13.5 SECONDS (10.1-12.7)
[2020-02-07 13:15] LABS: PTT Partial Thromboplastin Tim 40 SECONDS (26.4-36.2)
[2020-02-07 13:20] LABS: Lipase 160 U/L (23-300)
[2020-02-07 13:22] LABS: Lactate (Lactic Acid) 0.8 mmol/L (0.7-2.1)
[2020-02-07 13:24] LABS: Alanine Aminotransferase 19 IU/L (<35); Albumin 4.1 g/dL (3.5-5.0); Albumin Globulin Ratio 1.5 (1.0-2.8); Alkaline Phosphatase 84 U/L (38-126); Aspartate Aminotransferase 30 IU/L (14-36); BUN Creatinine Ratio 23.1 (6-22); Bilirubin Total 0.3 mg/dL (0.2-1.3); Blood Urea Nitrogen 15 mg/dL (7-17); C-Reactive Protein Quant < 0.5 mg/dL (<1.0); Calcium 9.1 mg/dL (8.4-10.2); Carbon Dioxide 22 mmol/L (22-32); Chloride 109 mmol/L (98-107); Erythrocyte Sedimentation Rate 2 MM/HR (0-20); Estimated Glomerular Filt Rate > 60.0 mL/min (>60); Globulin 2.8 g/dL (1.7-4.1); Glucose 91 mg/dL (70-100); HEMOLYSIS < 15 (0-50); Lactate Dehydrogenase 336 U/L (313-618); Potassium 3.7 mmol/L (3.4-5.1); Sodium 138 mmol/L (137-145); Total Protein 6.9 g/dL (6.3-8.2)
--- NOTE | 2020-02-07 13:35 | DI.CT.S_ITS ---
PROCEDURE: CT ANGIO CHEST ABDOMEN PELVIS INDICATIONS: Coagulopathy with DVT,Levic pain, Chest and Abd pain TECHNIQUE: Precontrast 5 mm thick sections acquired from the lung apices to the iliac crests. After the administration of intravenous contrast, 2.5 mm thick sections again acquired from the lung apices to the iliac crests. Maximum intensity projection (MIP) oblique sagittal and coronal reformats were then acquired. For radiation dose reduction, the following was used: automated exposure control. COMPARISON: [facility], CT, CT ABDOMEN PELVIS W CON, 10/10/2018, 17:41. [facility], CT, CT ANGIO CHEST PE PROTOCOL, 10/07/2019, 8:11. FINDINGS: Image quality: Excellent. AORTA: The thoracoabdominal aorta is normal in caliber, without aneurysm, dissection, nor stenosis. CHEST: Lungs and pleura: No acute airspace opacities. No pleural effusions or pneumothorax. Central and peripheral airways are patent and normal in caliber. Mediastinum: Heart size is normal. No pericardial effusion. No mediastinal or hilar adenopathy by size criteria. Central pulmonary arteries are normal in size. Esophagus is normal in caliber. No hiatal hernias. Bones and chest wall: No axillary adenopathy by size criteria. Thyroid gland demonstrates low-density bilateral nodules. No suspicious bony lesions. No vertebral body compression fractures. ABDOMEN: Vasculature: Celiac trunk and mesenteric arteries are patent. Renal arteries are also patent. Solid organs: Liver is normal in size and enhancement. Gallbladder is surgically absent. Biliary system is non dilated. Pancreas enhances normally. Pancreas divisum is present. There is increased, moderate dilatation of the pancreatic duct, measuring 6 mm diameter. Spleen is normal in size and enhancement. No adrenal nodules. Both kidneys are normal in size and enhancement, without hydronephrosis. Peritoneum and bowel: No free fluid or air. Bowel loops are normal in caliber and wall thickness. Appendectomy clips are present. Nodes and vessels: No retroperitoneal or mesenteric adenopathy by size criteria. Inferior vena cava is normal in morphology. IVC filter is present. Miscellaneous: No ventral hernias. PELVIS: Genitourinary: Bladder wall thickness is normal. Miscellaneous: No inguinal hernias or adenopathy. No ventral hernias. Bones: No suspicious bony lesions. No vertebral body compression fractures. IMPRESSION: 1. No evidence of acute process involving the chest, abdomen, nor pelvis. 2. New moderate pancreatic ductal dilatation. This could be further assessed with MRCP, if clinically indicated. 3. Bilateral thyroid nodules, which could be further assessed with ultrasound, if clinically indicated. Dictated by: Beto Gerardo M.D. on 02/07/2020 at 13:55 Approved by: Beto Gerardo M.D. on 02/07/2020 at 14:02
[2020-02-07 13:45] VITALS: BP 120/63; PULSE 78; O2SAT 98
[2020-02-07 14:02] VITALS: BP 120/63; PULSE 85; RESP 16; O2SAT 100; BMI 31.7
[2020-02-07 14:38] LABS: Bacteria Urine None Seen; RBC Urine None Seen (0-5/HPF); WBC Urine None Seen (0-5/HPF)
[2020-02-07 14:39] LABS: Appearance Urine UA CLEAR; Bilirubin Urine UA NEGATIVE (NEGATIVE); Color Urine UA YELLOW; Glucose Urine UA NEGATIVE (Negative); Ketones Urine UA NEGATIVE (NEGATIVE); Leukocyte Esterase Urine UA NEGATIVE (NEGATIVE); Nitrite Urine UA NEGATIVE (Negative); Occult Blood Urine UA NEGATIVE (Negative); Protein Urine UA NEGATIVE (Negative); Urobilinogen Urine UA 0.2 E.U./dL (0.2)
[2020-02-07 14:43] LABS: Culture Indicated Urine Cult Not Indicated; Urine Comments Microscopic Normal
[2020-02-07 15:02] VITALS: BP 115/56; PULSE 81; O2SAT 100
--- NOTE | 2020-02-07 16:16 | ED_ITS ---
HPI - Abdominal Pain <Bladimir Rangel MD - Last Filed: 02/08/20 07:16> General Chief Complaint: Abdominal Pain Stated Complaint: LEFT LEG BLOOD CLOT SWELLING PAIN ABD Time Seen by Provider: 02/07/20 12:28 Source: patient Mode of arrival: Ambulatory History of Present Illness HPI narrative: CC: Left upper and lower quadrant abdominal pain HPI: The patient is a 39-year-old female who has a past history of a gastric bypass with Vibha-en-Y. She developed a a deep vein thrombophlebitis involving her left leg and was initially placed on Eliquis and failed developing worsening thrombosis. There is a history that she was tried on Coumadin and also failed. On September 11 she had an inferior vena vena cava placed. She continues to have pain and discomfort in her medial left thigh and groin which is worse now than it has been. She has also developed increased swelling of the leg. She has had pain in the left upper quadrant and left lower quadrant of her abdomen arm. She has a history of kidney stones in the past. She denies a history of diverticulitis diverticulosis Crohn's disease ulcerative colitis or pancreatitis. She has had a hysterectomy cholecystectomy and appendectomy. She denies any nausea or vomiting. She also has a history of rheumatoid arthritis. She denies diabetes mellitus hypertension myocardial infarction or asthma. She does not smoke cigarettes she occasionally drinks alcohol does not use any drugs or marijuana. Her initial pain and discomfort was 8 to 9/10 in intensity. Her pain in the abdomen is a dull achy crampy pain. Related Data Home Medications Medication Instructions Recorded Confirmed biotin 10,000 mcg disintegrating 10,000 mcg PO DAILY 01/09/18 01/23/20 tablet calcium carbonate 600 mg calcium 300 mg PO TID tab 01/09/18 01/23/20 (1,500 mg) tablet folic acid 800 mcg tablet 800 mcg PO DAILY 01/09/18 01/23/20 multivitamin 1 cap PO DAILY 01/09/18 01/23/20 onabotulinumtoxinA 200 unit 200 unit IM ONCE each 05/28/19 01/23/20 solution for injection zonisamide 100 mg capsule See Rx Instructions .ROUTE 05/28/19 01/23/20 .COMPLEX cap apixaban 5 mg tablet 5 mg PO BID 10/21/19 01/23/20 Previous Rx's Medication Instructions Recorded erenumab-aooe 140 mg/mL 140 mg SUBCUT QMONTH #1 ml 02/12/19 subcutaneous auto-injector eletriptan 40 mg tablet See Rx Instructions PO .COMPLEX 06/12/19 #14 tab apixaban [Eliquis] 5 mg PO BID #60 tab 09/11/19 venlafaxine 75 mg capsule,extended 225 mg PO DAILY #90 cap 10/21/19 release 24 hr zolpidem 10 mg tablet 10 mg PO BEDTIME PRN #30 tab 01/23/20 oxycodone-acetaminophen 1 tab PO Q6H PRN #14 tab 02/07/20 Allergies Allergy/AdvReac Type Severity Reaction Status Date / Time Opioids - Morphine Analogues Allergy Severe Chest Pain Verified 02/07/20 14:02 Review of Systems <Bladimir Rangel MD - Last Filed: 02/08/20 07:16> Review of Systems Narrative: REVIEW OF SYSTEMS: CONSTITUTIONAL: The patient denies any fever chills or sweats. NEUROLOGICAL: She denies any headache numbness tingling paresthesias anesthesia is paresis or paralysis. EENT: She denies any sore throat dysphagia change in vision. CARDIO-PULMONARY: She denies any significant chest pain shortness of breath cough palpitations or dizziness. GASTROINTESTINAL: The patient's abdominal pain is as noted. She has had no nausea vomiting diarrhea melena or hematochezia. The patient however is status post gastric bypass Vibha-en-Y. GENITAL URINARY: The patient denies any urinary symptoms. She has had no hematuria pyuria Patient History <Bladimir Rangel MD - Last Filed: 02/08/20 07:16> Medical History Intractable migraine without aura and without status migrainosus (Chronic) Rheumatoid arthritis (Chronic) Surgical History History of gastric bypass (Resolved) Status post appendectomy (Resolved) Status post (Resolved) Status post cholecystectomy (Resolved) Status post hysterectomy (Resolved) Status post nasal septoplasty (Resolved) Family History Other Family history non-contributory Social History Smoking Status: Never smoker Smoking Status: Never smoker Substance Use Type: does not use Exam <Bladimir Rangel MD - Last Filed: 02/08/20 07:16> Narrative Exam Narrative: PHYSICAL EXAM: CONSTITUTIONAL: Awake, Alert, Oriented, Coherent, Cooperative and very uncomfortable. Head: Atraumatic and normocephalic. EENT: PERRL, FROM of eyes, no discharge, no nystagmus MOUTH:Oral mucosa is moist and pale lips NECK: Supple, no obvious JVD, Trachea is midline without stridor, no palpable LN. SPINE: Palpationof the cervical, Thoracic, Lumbar or Sacral spine reveals no gross deformity or tenderness. No CVA tenderness. THORAX: No deformity, retractions, chest wall tenderness. LUNGS: Clear, symmetrical breath sounds without respiratory distress. HEART: Normal heart tones, regular rhythm and rate without murmur. ABDOMEN: Tender to palpation in the left upper quadrant and left lower quadrant with guarding no rebound no rigidity no palpable organomegaly. LYMPHATIC: no palpable lymph nodes or spleen. EXTREMITIES: No edema, deformity, the patient's left medial thigh and groin heart exquisitely tender to palpation. Her left leg is mildly swollen compared to her right. There was no pitting edema no calf tenderness noted. SKIN: No rash, bruising, petechiae or purpura. NEURO: Awake, alert, oriented, conversive, cranial nerves II-XII are symmetrical , moves all 4 extremities and is ambulatory. Initial Vital Signs Initial Vital Signs: Vital Signs Temperature 98.5 F 02/07/20 13:01 Pulse Rate 73 02/07/20 13:01 Respiratory Rate 16 02/07/20 13:01 Blood Pressure 120/59 L 02/07/20 13:01 Pulse Oximetry 98 02/07/20 13:01 <Zhane Chaudhari MD - Last Filed: 02/07/20 22:47> Initial Vital Signs Initial Vital Signs: Vital Signs Temperature 98.5 F 02/07/20 13:01 Pulse Rate 73 02/07/20 13:01 Respiratory Rate 16 02/07/20 13:01 Blood Pressure 120/59 L 02/07/20 13:01 Pulse Oximetry 98 02/07/20 13:01 Course <Bladimir Rangel MD - Last Filed: 06/13/20 07:16> Course Course Narrative: 1618: The patient's CT scan of the abdomen revealed: 1. No evidence of acute process involving the chest abdomen or pelvis. 2. New moderate pancreatic ductal dilation. This could be further assessed with an MRCP if clinically indicated. 3. Bilateral thyroid nodules which could be further assessed with ultrasound if clinically indicated. will obtain a n ultrasound of the patient's left thigh and groin. 1624: The patient has a protein S deficiency and is a factor 5 Leiden coagulopathy. Patient has been referred to a vascular surgeon at [facility].. 1631: Initially with the patient's factor 5 Leiden deficiency and protein S deficiency and the patient's lower left chest pain, abdominal pain groin pain I was concerned that the patient may be developing mesenteric ischemia secondary to a mesenteric thrombosis. A CT angiogram of her chest abdomen and pelvis were ordered with the results noted above. 1819: The patient's MRI has been completed. However the report remains pending. 1823: The report for the patient's MRI of her abdomen remains pending. The ultrasound of the patient's left leg involving her venous system reveals a nonocclusive thrombus seen which appears more prominent than on the prior examination, now involving the common femoral vein as well as the greater saphenous vein and profunda femoris vein. Orders Ordered: Discontinued Medications Dicyclomine HCl (Bentyl) 20 mg PO NOW ONE Stop: 02/07/20 16:46 Last Admin: 02/07/20 17:01 Dose: 20 mg Documented by: LISA Hydromorphone HCl (Dilaudid) 1 mg IV NOW ONE Stop: 02/07/20 12:54 Last Admin: 02/07/20 13:08 Dose: 1 mg Documented by: KBROTEM Hydromorphone HCl (Dilaudid) 1 mg IV NOW ONE Stop: 02/07/20 15:11 Last Admin: 02/07/20 15:14 Dose: 1 mg Documented by: SCANAPO Hydromorphone HCl (Dilaudid) 0.5 mg IV NOW ONE Stop: 02/07/20 18:20 Last Admin: 02/07/20 18:46 Dose: 0.5 mg Documented by: LISA Sodium Chloride (Normal Saline 0.9%) 1,000 mls @ 1,000 mls/hr IV BOLUS ONE Stop: 02/07/20 13:28 Last Infusion: 02/07/20 14:20 Dose: 0 mls/hr Documented by: Admin: 02/07/20 13:07 Dose: 1,000 mls/hr Documented by: MARYLU Lorazepam (Ativan) 1 mg IV NOW ONE Stop: 02/07/20 17:10 Last Admin: 02/07/20 17:15 Dose: 1 mg Documented by: LISA Ondansetron HCl (Zofran) 4 mg IV NOW ONE Stop: 02/07/20 12:54 Last Admin: 02/07/20 13:08 Dose: 4 mg Documented by: MARYLU Oxycodone/Acetaminophen (Endocet 5/325 Prepack) 1 bottle MISC SEEINSTR ONE Stop: 02/07/20 20:28 Last Admin: 02/07/20 20:33 Dose: 1 bottle Documented by: MARYLU Vital Signs Vital signs: Vital Signs - 8 hr 02/07/20 15:02 02/07/20 18:12 02/07/20 20:31 Pulse Rate 81 87 89 Blood Pressure 117/58 L Blood Pressure [Left Arm] 115/56 L 117/58 L Pulse Oximetry 100 98 97 <Zhane Chaudhari MD - Last Filed: 02/07/20 22:47> Orders Ordered: Discontinued Medications Dicyclomine HCl (Bentyl) 20 mg PO NOW ONE Stop: 02/07/20 16:46 Last Admin: 02/07/20 17:01 Dose: 20 mg Documented by: LISA Hydromorphone HCl (Dilaudid) 1 mg IV NOW ONE Stop: 02/07/20 12:54 Last Admin: 02/07/20 13:08 Dose: 1 mg Documented by: MARYLU Hydromorphone HCl (Dilaudid) 1 mg IV NOW ONE Stop: 02/07/20 15:11 Last Admin: 02/07/20 15:14 Dose: 1 mg Documented by: ANT Hydromorphone HCl (Dilaudid) 0.5 mg IV NOW ONE Stop: 02/07/20 18:20 Last Admin: 02/07/20 18:46 Dose: 0.5 mg Documented by: LISA Sodium Chloride (Normal Saline 0.9%) 1,000 mls @ 1,000 mls/hr IV BOLUS ONE Stop: 02/07/20 13:28 Last Infusion: 02/07/20 14:20 Dose: 0 mls/hr Documented by: Admin: 02/07/20 13:07 Dose: 1,000 mls/hr Documented by: MARYLU Lorazepam (Ativan) 1 mg IV NOW ONE Stop: 02/07/20 17:10 Last Admin: 02/07/20 17:15 Dose: 1 mg Documented by: LISA Ondansetron HCl (Zofran) 4 mg IV NOW ONE Stop: 02/07/20 12:54 Last Admin: 02/07/20 13:08 Dose: 4 mg Documented by: MARYLU Oxycodone/Acetaminophen (Endocet 5/325 Prepack) 1 bottle MISC SEEINSTR ONE Stop: 02/07/20 20:28 Last Admin: 02/07/20 20:33 Dose: 1 bottle Documented by: MARYLU Vital Signs Vital signs: Vital Signs - 8 hr 02/07/20 15:02 02/07/20 18:12 02/07/20 20:31 Pulse Rate 81 87 89 Blood Pressure 117/58 L Blood Pressure [Left Arm] 115/56 L 117/58 L Pulse Oximetry 100 98 97 MDM - Abdominal Pain <Bladimir Rangel MD - Last Filed: 02/08/20 07:16> Medical Records Attestation: I reviewed the patient's medical records. Lab Data Attestation: I reviewed the patient's lab results. Result diagrams: 02/07/20 12:55 02/07/20 12:55 Labs: Lab Results 02/07/20 02/07/20 02/07/20 Range/Units 12:55 12:55 12:55 WBC 11.3 H (4.5-11.0) X10^3/uL RBC 4.58 (4.0-5.2) X10^6/uL Hgb 12.0 (12.0-16.0) g/dL Hct 36.4 (36-46) % MCV 79.5 L (80-100) fL MCH 26.2 (26-34) PG MCHC 33.0 (30-36) % RDW 17.9 H (11.6-14.8) % Plt Count 339 (150-400) X10^3/uL Neut % (Auto) 53.6 (50-75) % Lymph % (Auto) 36.5 (25-40) % [place] % (Auto) 6.8 (3-14) % Eos % (Auto) 2.4 (2-4) % Baso % (Auto) 0.7 (0-2) % Neut # (Auto) 6000 (3893-7796) /uL Lymph # (Auto) 4100 (8016-2559) /uL [place] # (Auto) 800 (0-900) /uL Eos # (Auto) 300 (0-450) /uL Baso # (Auto) 100 (0-100) /uL ESR 2 (0-20) MM/HR PT 13.5 H (10.1-12.7) SECONDS INR 1.2 (0.9-1.3) APTT 40 H (26.4-36.2) SECONDS Sodium 138 (137-145) mmol/L Potassium 3.7 (3.4-5.1) mmol/L Chloride 109 H (98-107) mmol/L Carbon Dioxide 22 (22-32) mmol/L BUN 15 (7-17) mg/dL Creatinine 0.65 (0.52-1.04) mg/dL Estimated GFR > 60.0 (>60) mL/min BUN/Creatinine Ratio 23.1 H (6-22) Glucose 91 (70-100) mg/dL Lactate (0.7-2.1) mmol/L Calcium 9.1 (8.4-10.2) mg/dL Total Bilirubin 0.3 (0.2-1.3) mg/dL AST 30 (14-36) IU/L ALT 19 (<35) IU/L Alkaline Phosphatase 84 (38-126) U/L Lactate Dehydrogenase 336 (313-618) U/L C-Reactive Protein < 0.5 (<1.0) mg/dL Total Protein 6.9 (6.3-8.2) g/dL Albumin 4.1 (3.5-5.0) g/dL Globulin 2.8 (1.7-4.1) g/dL Albumin/Globulin Ratio 1.5 (1.0-2.8) Lipase (23-300) U/L Urine Color Urine Appearance Urine pH (4.5-8.0) Ur Specific [place] (1.000-1.035) Urine Protein (Negative) Urine Glucose (UA) (Negative) g/dL Urine Ketones (NEGATIVE) Urine Occult Blood (Negative) Urine Nitrate (Negative) Urine Bilirubin (NEGATIVE) Urine Urobilinogen (0.2) E.U./dL Ur Leukocyte Esterase (NEGATIVE) Urine RBC (0-5/HPF) Urine WBC (0-5/HPF) Urine Bacteria (None) Ur Culture Indicated? Micro UA Comment 02/07/20 02/07/20 02/07/20 Range/Units 12:55 12:55 14:27 WBC (4.5-11.0) X10^3/uL RBC (4.0-5.2) X10^6/uL Hgb (12.0-16.0) g/dL Hct (36-46) % MCV (80-100) fL MCH (26-34) PG MCHC (30-36) % RDW (11.6-14.8) % Plt Count (150-400) X10^3/uL Neut % (Auto) (50-75) % Lymph % (Auto) (25-40) % [place] % (Auto) (3-14) % Eos % (Auto) (2-4) % Baso % (Auto) (0-2) % Neut # (Auto) (7008-1031) /uL Lymph # (Auto) (1041-7565) /uL [place] # (Auto) (0-900) /uL Eos # (Auto) (0-450) /uL Baso # (Auto) (0-100) /uL ESR (0-20) MM/HR PT (10.1-12.7) SECONDS INR (0.9-1.3) APTT (26.4-36.2) SECONDS Sodium (137-145) mmol/L Potassium (3.4-5.1) mmol/L Chloride (98-107) mmol/L Carbon Dioxide (22-32) mmol/L BUN (7-17) mg/dL Creatinine (0.52-1.04) mg/dL Estimated GFR (>60) mL/min BUN/Creatinine Ratio (6-22) Glucose (70-100) mg/dL Lactate 0.8 (0.7-2.1) mmol/L Calcium (8.4-10.2) mg/dL Total Bilirubin (0.2-1.3) mg/dL AST (14-36) IU/L ALT (<35) IU/L Alkaline Phosphatase (38-126) U/L Lactate Dehydrogenase (313-618) U/L C-Reactive Protein (<1.0) mg/dL Total Protein (6.3-8.2) g/dL Albumin (3.5-5.0) g/dL Globulin (1.7-4.1) g/dL Albumin/Globulin Ratio (1.0-2.8) Lipase 160 (23-300) U/L Urine Color Yellow Urine Appearance Clear Urine pH 5.0 (4.5-8.0) Ur Specific [place] 1.010 (1.000-1.035) Urine Protein Negative (Negative) Urine Glucose (UA) Negative (Negative) g/dL Urine Ketones Negative (NEGATIVE) Urine Occult Blood Negative (Negative) Urine Nitrate Negative (Negative) Urine Bilirubin Negative (NEGATIVE) Urine Urobilinogen 0.2 (0.2) E.U./dL Ur Leukocyte Esterase Negative (NEGATIVE) Urine RBC None seen (0-5/HPF) Urine WBC None seen (0-5/HPF) Urine Bacteria None seen (None) Ur Culture Indicated? Cult not indicated Micro UA Comment Microscopic normal Point of care testing: Urine Dip Bedside Urine Glucose Negative Bedside Urine Bilirubin - Negative Bedside Urine Ketone - Negative Urine Specific [place] 1.015 Bedside Urine Occult Blood - Negative Bedside Urine pH 5.0 Bedside Urine Protein - Negative Bedside Urine Urobilinogen - Negative Bedside Urine Nitrite - Negative Bedside Urine Leukocytes + 70 Esterase <Zhane Chaudhari MD - Last Filed: 02/07/20 22:47> Medical Records Attestation: I reviewed the patient's medical records. Lab Data Attestation: I reviewed the patient's lab results. Labs: Lab Results 02/07/20 02/07/20 02/07/20 Range/Units 12:55 12:55 12:55 WBC 11.3 H (4.5-11.0) X10^3/uL RBC 4.58 (4.0-5.2) X10^6/uL Hgb 12.0 (12.0-16.0) g/dL Hct 36.4 (36-46) % MCV 79.5 L (80-100) fL MCH 26.2 (26-34) PG MCHC 33.0 (30-36) % RDW 17.9 H (11.6-14.8) % Plt Count 339 (150-400) X10^3/uL Neut % (Auto) 53.6 (50-75) % Lymph % (Auto) 36.5 (25-40) % [place] % (Auto) 6.8 (3-14) % Eos % (Auto) 2.4 (2-4) % Baso % (Auto) 0.7 (0-2) % Neut # (Auto) 6000 (0661-8215) /uL Lymph # (Auto) 4100 (2959-3842) /uL [place] # (Auto) 800 (0-900) /uL Eos # (Auto) 300 (0-450) /uL Baso # (Auto) 100 (0-100) /uL ESR 2 (0-20) MM/HR PT 13.5 H (10.1-12.7) SECONDS INR 1.2 (0.9-1.3) APTT 40 H (26.4-36.2) SECONDS Sodium 138 (137-145) mmol/L Potassium 3.7 (3.4-5.1) mmol/L Chloride 109 H (98-107) mmol/L Carbon Dioxide 22 (22-32) mmol/L BUN 15 (7-17) mg/dL Creatinine 0.65 (0.52-1.04) mg/dL Estimated GFR > 60.0 (>60) mL/min BUN/Creatinine Ratio 23.1 H (6-22) Glucose 91 (70-100) mg/dL Lactate (0.7-2.1) mmol/L Calcium 9.1 (8.4-10.2) mg/dL Total Bilirubin 0.3 (0.2-1.3) mg/dL AST 30 (14-36) IU/L ALT 19 (<35) IU/L Alkaline Phosphatase 84 (38-126) U/L Lactate Dehydrogenase 336 (313-618) U/L C-Reactive Protein < 0.5 (<1.0) mg/dL Total Protein 6.9 (6.3-8.2) g/dL Albumin 4.1 (3.5-5.0) g/dL Globulin 2.8 (1.7-4.1) g/dL Albumin/Globulin Ratio 1.5 (1.0-2.8) Lipase (23-300) U/L Urine Color Urine Appearance Urine pH (4.5-8.0) Ur Specific [place] (1.000-1.035) Urine Protein (Negative) Urine Glucose (UA) (Negative) g/dL Urine Ketones (NEGATIVE) Urine Occult Blood (Negative) Urine Nitrate (Negative) Urine Bilirubin (NEGATIVE) Urine Urobilinogen (0.2) E.U./dL Ur Leukocyte Esterase (NEGATIVE) Urine RBC (0-5/HPF) Urine WBC (0-5/HPF) Urine Bacteria (None) Ur Culture Indicated? Micro UA Comment 02/07/20 02/07/20 02/07/20 Range/Units 12:55 12:55 14:27 WBC (4.5-11.0) X10^3/uL RBC (4.0-5.2) X10^6/uL Hgb (12.0-16.0) g/dL Hct (36-46) % MCV (80-100) fL MCH (26-34) PG MCHC (30-36) % RDW (11.6-14.8) % Plt Count (150-400) X10^3/uL Neut % (Auto) (50-75) % Lymph % (Auto) (25-40) % [place] % (Auto) (3-14) % Eos % (Auto) (2-4) % Baso % (Auto) (0-2) % Neut # (Auto) (3890-5016) /uL Lymph # (Auto) (8339-1570) /uL [place] # (Auto) (0-900) /uL Eos # (Auto) (0-450) /uL Baso # (Auto) (0-100) /uL ESR (0-20) MM/HR PT (10.1-12.7) SECONDS INR (0.9-1.3) APTT (26.4-36.2) SECONDS Sodium (137-145) mmol/L Potassium (3.4-5.1) mmol/L Chloride (98-107) mmol/L Carbon Dioxide (22-32) mmol/L BUN (7-17) mg/dL Creatinine (0.52-1.04) mg/dL Estimated GFR (>60) mL/min BUN/Creatinine Ratio (6-22) Glucose (70-100) mg/dL Lactate 0.8 (0.7-2.1) mmol/L Calcium (8.4-10.2) mg/dL Total Bilirubin (0.2-1.3) mg/dL AST (14-36) IU/L ALT (<35) IU/L Alkaline Phosphatase (38-126) U/L Lactate Dehydrogenase (313-618) U/L C-Reactive Protein (<1.0) mg/dL Total Protein (6.3-8.2) g/dL Albumin (3.5-5.0) g/dL Globulin (1.7-4.1) g/dL Albumin/Globulin Ratio (1.0-2.8) Lipase 160 (23-300) U/L Urine Color Yellow Urine Appearance Clear Urine pH 5.0 (4.5-8.0) Ur Specific [place] 1.010 (1.000-1.035) Urine Protein Negative (Negative) Urine Glucose (UA) Negative (Negative) g/dL Urine Ketones Negative (NEGATIVE) Urine Occult Blood Negative (Negative) Urine Nitrate Negative (Negative) Urine Bilirubin Negative (NEGATIVE) Urine Urobilinogen 0.2 (0.2) E.U./dL Ur Leukocyte Esterase Negative (NEGATIVE) Urine RBC None seen (0-5/HPF) Urine WBC None seen (0-5/HPF) Urine Bacteria None seen (None) Ur Culture Indicated? Cult not indicated Micro UA Comment Microscopic normal Point of care testing: Urine Dip Bedside Urine Glucose Negative Bedside Urine Bilirubin - Negative Bedside Urine Ketone - Negative Urine Specific [place] 1.015 Bedside Urine Occult Blood - Negative Bedside Urine pH 5.0 Bedside Urine Protein - Negative Bedside Urine Urobilinogen - Negative Bedside Urine Nitrite - Negative Bedside Urine Leukocytes + 70 Esterase Imaging Data MRI abdomen: Radiologist's Impression: IMPRESSION: 1. Limited examination secondary to motion artifact. 2. No change in pancreatic ductal dilatation compared to CT examination dated 02.07.20 at 1330 hrs. 3. Pancreas divisum. 4. ERCP is recommended for further assessment, as recommended on the 02.07.20 CT examination report. Dictated by: Beto Gerardo M.D. on 02/07/2020 at 18:19 MDM Narrative Medical decision making narrative: Patient is accepted in transfer with MRI results pending. MRI of her abdomen offers no new insight be on the CT scan was performed. ERCP was recommended. Considered MRCP however study is not available this evening. In light of normal labs, no increased LFTs or white blood cell count and pain slightly improved I think she is safe for home discharge. She is given a prepack of Percocet and additional Percocet prescrip tion. She will follow-up with her primary care physician. 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 All labs and findings reviewed with her today. She is safe for home discharge Discharge Plan Departure Patient Disposition: Home Clinical Impression: H/O deep venous thrombosis, Factor V Leiden, Protein S deficiency Abdominal pain Qualifiers: Abdominal location: left upper quadrant Qualified Code(s): R10.12 - Left upper quadrant pain Acute thigh pain Qualifiers: Laterality: left Qualified Code(s): M79.652 - Pain in left thigh Discharge Date/Time: 02/07/20 20:31 Activity Restrictions/Additional Instructions: Thank you for spending the afternoon with us Your CT scan and MRI showed dilated pancreatic ducts and an ERCP has been recommended. In light of a normal white blood cell count and normal levels liver studies today I do not think this needs to be done immediately and we are not able to do an MRCP from the ER this evening. The DVT in the proximal left thigh is not completely occlusive. You do have the filter in place and do need to continue with her Eliquis. I very much agree with your primary care physician's recommendation to be further evaluated by the vascular team down at [facility]. Please feel free to use Percocet sparingly for acute pain. A prescription has been electronically transmitted to [facility] for you. Please follow-up with your primary care physician. If you feel that you are getting worse, developing fevers, notice any jaundice or other changing or developing findings would be very appropriate to return. I wish you the best Prescriptions: New oxycodone-acetaminophen 5-325 mg tablet 1 tab PO Q6H PRN (Reason: pain) Qty: 14 RF: 0 No Action calcium carbonate [Calcium 600] 600 mg calcium (1,500 mg) tablet 300 mg PO TID RF: 0 multivitamin capsule 1 cap PO DAILY RF: 0 folic acid 800 mcg tablet 800 mcg PO DAILY RF: 0 biotin 10,000 mcg tablet,disintegrating 10,000 mcg PO DAILY RF: 0 zolpidem [Ambien] 10 mg tablet 10 mg PO BEDTIME PRN (Reason: insomnia) Qty: 30 RF: 0 Botox 200 unit recon soln 200 unit IM ONCE RF: 0 zonisamide 100 mg capsule See Rx Instructions .ROUTE .COMPLEX RF: 0 Eliquis 5 mg tablet 5 mg PO BID RF: 0 venlafaxine [Effexor XR] 75 mg capsule,extended release 24hr 225 mg PO DAILY Qty: 90 RF: 3 eletriptan 40 mg tablet See Rx Instructions PO .COMPLEX Qty: 14 RF: 2 Eliquis 5 mg tablet 5 mg PO BID Qty: 60 RF: 0 Aimovig Autoinjector 140 mg/mL auto-injector 140 mg SUBCUT QMONTH Qty: 1 RF: 12 Referrals: Rox Clark DO [Primary Care Provider] -
--- NOTE | 2020-02-07 16:16 | DI.MRI.S_ITS ---
PROCEDURE: MR ABDOMEN WO CON INDICATIONS: s/p rouxen y bypass with severe left upper quadrant pain/ ra TECHNIQUE: Coronal HASTE through the abdomen, axial 2-D FLASH in- and [id number], and breath-hold T2 FSE with fat saturation through the biliary system and pancreas. Oblique coronal and axial thin-slice HASTE, radial thick-slab HASTE centered on the extrahepatic bile ducts. Intravenous secretin: Not requested. COMPARISON: [facility], CT, CT ANGIO CHEST ABDOMEN PELVIS, 02/07/2020, 13:28. FINDINGS: Image quality: Degraded by motion artifact. Pancreas and biliary system: Intra- and extra-hepatic biliary ducts are non dilated. Pancreas is normal in morphology, without adjacent soft tissue edema. Pancreas divisum present. Pancreatic duct is dilated, as before, measuring 6 mm diameter. Gallbladder is not seen. Other solid organs: Liver is normal in size. Spleen is normal in size. No adrenal nodules. Both kidneys are normal in size, without hydronephrosis. Nodes and vessels: No retroperitoneal or mesenteric adenopathy by size criteria. Aorta and inferior vena cava are normal in size. Bowel and peritoneum: Unenhanced bowel loops are normal in caliber. No free fluid. Lung bases: No basal pleural effusions. Heart size is normal. Bones and soft tissues: No ventral hernias. Bone marrow is of normal overall signal. IMPRESSION: 1. Limited examination secondary to motion artifact. 2. No change in pancreatic ductal dilatation compared to CT examination dated 02.07.20 at 1330 hrs. 3. Pancreas divisum. 4. ERCP is recommended for further assessment, as recommended on the 02.07.20 CT examination report. Dictated by: Beto Gerardo M.D. on 02/07/2020 at 18:19 Approved by: Beto Gerardo M.D. on 02/07/2020 at 18:21
--- NOTE | 2020-02-07 16:20 | DI.US.S_ITS ---
PROCEDURE: PERIP VENOUS LOW EXTREM LT INDICATIONS: SEVERE LEFT UPPER THIGH AND GROIN PAIN TECHNIQUE: Real-time imaging, as well as color and pulse Doppler interrogation, were performed of the lower extremity deep veins from the inguinal ligament to the popliteal fossa. COMPARISON: [facility], [facility] VENOUS LOW EXTREM LT, 01/02/2020, 11:36. [facility], [facility] VENOUS LOW EXTREM LT, 11/27/2019, 14:40. [facility], [facility] VENOUS LOW EXTREM LT, 10/24/2019, 8:08. [facility] VENOUS LOW EXTREM LT, 10/10/2019, 8:06. [facility] VENOUS LOW EXTREM LT, 02/04/2020, 10:21. FINDINGS: Deep venous thrombosis can again be seen within the greater saphenous vein, the common femoral vein and the profunda femoris vein. Nonocclusive thrombus can be seen at these sites. IMPRESSION: Nonocclusive thrombus seen, which appears more prominent than on the prior examination, now involving the common femoral vein as well as the greater saphenous vein and profunda femoris vein. Dictated by: Timbo Navarro M.D. on 02/07/2020 at 16:19 Approved by: Timbo Navarro M.D. on 02/07/2020 at 16:20
[2020-02-07] MEDS: DICYCLOMINE 10 MG CAPSULE 20 MG PO (17:01)
[2020-02-07] MEDS: LORazepam 2 MG/ML INJ 1 MG IV (17:15)
[2020-02-07 18:12] VITALS: BP 117/58; PULSE 87; O2SAT 98
[2020-02-07] MEDS: HYDROMORPHONE 0.5 MG INJ IV (18:46)
[2020-02-07 20:31] VITALS: BP 117/58; PULSE 89; O2SAT 97
[2020-02-07] MEDS: OXYCODONE/APAP 5/325 PREPACK 1 BOTTLE MISC (20:33)
== END 2020-02-07 20:31 | disposition home or self-care (01) ==
PROVIDERS: Emergency Medicine; Emergency Provider Emergency Medicine; PCP Obstetrics & Gynecology
DX: R10.12 Left upper quadrant pain (principal); M79.652 Pain in left thigh; Z86.718 Personal history of other venous thrombosis and embolism; D68.51 Activated protein C resistance; D68.59 Other primary thrombophilia
CPT/HCPCS: 36415; 71275; 74174; 74181; 80053; 81001; 81003; 83605; 83615; 83690; 85025; 85610; 85651; 85730; 86140; 93971; 96374; 96375; 96376; 99284; J1170; J2060; J2405; Q9967

== ENCOUNTER 2020-02-25 18:20 | Emergency (ER) | payer OTHER, SELFPAY ==
[2020-02-25 18:37] VITALS: PULSE 73; RESP 16; TEMP 36.7; O2SAT 100; BMI 30.9
--- NOTE | 2020-02-25 19:19 | DI.US.S_ITS ---
PROCEDURE: US PERIPH VENOUS LOW EXTREM BI INDICATIONS: PAIN; EDEMA; HX DVT TECHNIQUE: Real-time imaging, as well as color and pulse Doppler interrogation, were performed of the deep veins of both legs from the inguinal ligament to the popliteal fossa. COMPARISON: [facility], CT, CT ANGIO CHEST ABDOMEN PELVIS, 02/07/2020, 13:28. [facility], US, US PERIPH VENOUS LOW EXTREM LT, 02/07/2020, 16:45. FINDINGS: Right: The common femoral, femoral and popliteal veins are normally compressible, and free of intraluminal thrombus. Color and pulse Doppler demonstrate normal phasic intravascular flow. There is normal augmentation response to distal compression maneuver. Left: The common femoral, femoral and popliteal veins are normally compressible, and free of intraluminal thrombus. Color and pulse Doppler demonstrate normal phasic intravascular flow. There is normal augmentation response to distal compression maneuver. IMPRESSION: No DVT demonstrated in either lower extremity. Thrombus seen in the left lower extremity is no longer identified. Dictated by: Zack Power M.D. on 02/25/2020 at 20:26 Approved by: Zack Power M.D. on 02/25/2020 at 20:28
--- NOTE | 2020-02-25 19:29 | ED_ITS ---
HPI - Extremity Problem General Chief complaint: Extremity Problem,Nontraumatic Stated complaint: DVT RIGHT LEG Time Seen by Provider: 02/25/20 19:03 Source: patient Mode of arrival: Ambulatory Limitations: no limitations History of Present Illness HPI Narrative: Patient complains of right calf pain starting mid afternoon today. No chest pain no dyspnea. Patient has had history of blood clots in the left leg, most recently seen here 2 or 3 weeks ago with diagnosis of a new blood clot in the left leg. Patient is on Eliquis. Patient developed blood clots August 2019 this year, patient had abdominal plasty end of last year. Patient does have IVC filter in place. Patient has appointment, 1st office appointment with hematology [facility] primary care physician is in [place], Dr. Roberts, they increased her Eliquis to 10 mg twice a day on last visit here. Patient has had Percocet pain pills before without any allergic reaction. Patient states she has history factor 5 Leiden and protein S deficiency. [place] [address] Ultrasound Report Signed Patient: Hien Yeager EMR#: [id number] : 1980Acct:[id number] Age/Sex: 39 / FDate of Service: 02/07/20 Loc: ED Accession Number: [id number] Procedure: periph venous low extrem lt Ordering Provider: Bladimir Rangel MD PROCEDURE: PERIPH VENOUS LOW EXTREM LT INDICATIONS: SEVERE LEFT UPPER THIGH AND GROIN PAIN TECHNIQUE: Real-time imaging, as well as color and pulse Doppler interrogation, were performed of the lower extremity deep veins from the inguinal ligament to the popliteal fossa. COMPARISON: [facility], PERIP VENOUS LOW EXTREM LT, 01/02/2020, 11:36. [facility] PERIP VENOUS LOW EXTREM LT, 11/27/2019, 14:40. [facility] PERIP VENOUS LOW EXTREM LT, 10/24/2019, 8:08. [facility] PERIP VENOUS LOW EXTREM LT, 10/10/2019, 8:06. [facility] PERIP VENOUS LOW EXTREM LT, 02/04/2020, 10:21. FINDINGS: Deep venous thrombosis can again be seen within the greater saphenous vein, the common femoral vein and the profunda femoris vein. Nonocclusive thrombus can be seen at these sites. IMPRESSION: Nonocclusive thrombus seen, which appears more prominent than on the prior examination, now involving the common femoral vein as well as the greater s aphenous vein and profunda femoris vein. Dictated by: Timbo Navarro M.D. on 02/07/2020 at 16:19 Approved by: Timbo Navarro M.D. on 02/07/2020 at 16:20 Related Data Home Medications Medication Instructions Recorded Confirmed biotin 10,000 mcg disintegrating 10,000 mcg PO DAILY 01/09/18 01/23/20 tablet calcium carbonate 600 mg calcium 300 mg PO TID tab 01/09/18 01/23/20 (1,500 mg) tablet folic acid 800 mcg tablet 800 mcg PO DAILY 01/09/18 01/23/20 multivitamin 1 cap PO DAILY 01/09/18 01/23/20 onabotulinumtoxinA 200 unit 200 unit IM ONCE each 05/28/19 01/23/20 solution for injection zonisamide 100 mg capsule See Rx Instructions .ROUTE 05/28/19 01/23/20 .COMPLEX cap apixaban 5 mg tablet 5 mg PO BID 10/21/19 01/23/20 Previous Rx's Medication Instructions Recorded erenumab-aooe 140 mg/mL 140 mg SUBCUT QMONTH #1 ml 02/12/19 subcutaneous auto-injector eletriptan 40 mg tablet See Rx Instructions PO .COMPLEX 06/12/19 #14 tab apixaban [Eliquis] 5 mg PO BID #60 tab 09/11/19 venlafaxine 75 mg capsule,extended 225 mg PO DAILY #90 cap 10/21/19 release 24 hr oxycodone-acetaminophen 1 tab PO Q6H PRN #14 tab 02/07/20 zolpidem 10 mg tablet 10 mg PO BEDTIME PRN #30 tab 02/24/20 Allergies Allergy/AdvReac Type Severity Reaction Status Date / Time Opioids - Morphine Analogues Allergy Severe Chest Pain Verified 02/25/20 18:41 Review of Systems Review of Systems Narrative: GENERAL: Denies chills, fatigue, malaise, fever, sweats. HEENT: Denies sinus pain, ear pain, sore throat, difficulty swallowing, dizziness. RESPIRATORY: Denies dyspnea, cough, wheezing, hemoptysis, sputum. CARDIOVASCULAR: Denies chest pain, palpitations, orthopnea, edema, GASTROINTESTINAL: Denies nausea, vomiting, abdominal pain, diarrhea, constipation, melena. : Denies dysuria, frequency, incontinence, hematuria, urinary retention. MUSCULOSKELETAL: denies weakness, joint pain, or bony pain, complains of right calf pain as well as increase left medial thigh pain SKIN: Denies rash, skin lesions, or other NEUROLOGIC: Denies weakness, headache, numbness, change in speech, confusion, seizures, incoordination. PSYCHIATRIC: No concerning psychosocial issues. ROS Unobtainable: All systems reviewed & are unremarkable except as noted in HPI and below Patient History Medical History Intractable migraine without aura and without status migrainosus (Chronic) Rheumatoid arthritis (Chronic) Surgical History History of gastric bypass (Resolved) Status post appendectomy (Resolved) Status post (Resolved) Status post cholecystectomy (Resolved) Status post hysterectomy (Resolved) Status post nasal septoplasty (Resolved) Family History Other Family history non-contributory Social History Smoking Status: Never smoker Smoking Status: Never smoker Substance Use Type: does not use Exam Narrative Exam Narrative: GENERAL: patient appears stated age. Well-nourished, well- developed patient, in no distress, not toxic, pants and shoes and socks off HEAD: Atraumatic. Normocephalic. EYES: Pupils equal round and reactive. Extraocular motions intact. No scleral icterus. No injection or drainage. ENT: Nose without bleeding, purulent drainage. Throat without erythema, tonsillar hypertrophy or exudate. Airway patent. NECK: Trachea midline. Non tender CARDIOVASCULAR: Regular rate and rhythm without murmurs, gallops, or rubs. RESPIRATORY: Clear to auscultation. Breath sounds equal bilaterally. No wheezes, rales, or rhonchi. GASTROINTESTINAL: Abdomen soft, non-tender, nondistended. EXTREMITIES: No edema or joint tenderness. Examination right calf mid tenderness no palpable cord, pain with Homans and thakur test.. Examination left lower extremity grossly symmetric to right lower extremity both were soft and pink with strong pedal pulses and brisk cap refills with light touch intact to foot and toes BACK: Nontender without deformity or crepitance. No flank tenderness. NEURO: AOx3. SKIN: No rash or erythema of visible areas Initial Vital Signs Initial Vital Signs: Vital Signs Temperature 98.1 F 02/25/20 18:37 Pulse Rate 73 02/25/20 18:37 Respiratory Rate 16 02/25/20 18:37 Pulse Oximetry 100 02/25/20 18:37 Course Course Course Narrative: Patient in no distress. No chest pain or dyspnea. Time 8:46 p.m.. Patient and father in the room. Patient desires further inves tigation as far as any migration of DVTs into the pelvis/abdomen. She understands just had a CT scan 3 weeks ago and would have exposure again to radiation and IV contrast Orders Ordered: ED Orders 02/25/20 19:19 US periph venous low extrem bi Stat 02/25/20 19:41 Complete Blood Count AUTO DIFF Stat Comprehensive Metabolic Panel Stat Partial Thromboplastin Time Stat Prothrombin Time INR Stat 02/25/20 20:44 CT angio chest abdomen pelvis Stat Discontinued Medications Sodium Chloride (Normal Saline 0.9%) 1,000 mls @ 1,000 mls/hr IV BOLUS PRN PRN Reason: Fluid replacement Last Infusion: 02/25/20 22:00 Dose: 0 mls/hr Documented by: Infusion: 02/25/20 21:10 Dose: 1,000 mls/hr Documented by: Infusion: 02/25/20 21:00 Dose: 0 mls/hr Documented by: Admin: 02/25/20 20:48 Dose: 1,000 mls/hr Documented by: NARAYAN Ondansetron HCl (Zofran) 4 mg IV NOW ONE Stop: 02/25/20 20:16 Last Admin: 02/25/20 20:22 Dose: 4 mg Documented by: NARAYAN Oxycodone/Acetaminophen (Percocet 5/325) 1 tab PO NOW ONE Stop: 02/25/20 20:16 Last Admin: 02/25/20 20:22 Dose: 1 tab Documented by: NARAYAN Reevaluation(s) Reevaluation #1: Headache improved, patient states she was started have migraine headache. Leg pain has improved as well. Patient was given Percocet. Patient and father desire discharge home Time: 22:05 Vital Signs Vital signs: Vital Signs - 8 hr 02/25/20 18:37 02/25/20 20:31 02/25/20 22:13 Temperature 98.1 F 98.6 F Pulse Rate 73 70 77 Respiratory Rate 16 16 Blood Pressure 126/63 122/60 Pulse Oximetry 100 100 99 MDM - Extremity (Nontraumatic) Differential Diagnosis Differential diagnosis: Likely superficial thrombophlebitis and deep venous thrombosis of upper extremity Lab Data Result diagrams: 02/25/20 19:41 02/25/20 19:41 Labs: Lab Results 02/25/20 02/25/20 02/25/20 Range/Units 19:41 19:41 19:41 WBC 10.7 (4.5-11.0) X10^3/uL RBC 4.55 (4.0-5.2) X10^6/uL Hgb 12.3 (12.0-16.0) g/dL Hct 37.2 (36-46) % MCV 81.8 (80-100) fL MCH 27.1 (26-34) PG MCHC 33.1 (30-36) % RDW 15.5 H (11.6-14.8) % Plt Count 348 (150-400) X10^3/uL Neut % (Auto) 51.9 (50-75) % Lymph % (Auto) 37.0 (25-40) % [place] % (Auto) 7.3 (3-14) % Eos % (Auto) 2.8 (2-4) % Baso % (Auto) 1.0 (0-2) % Neut # (Auto) 5500 (6303-1151) /uL Lymph # (Auto) 4000 (7733-4450) /uL [place] # (Auto) 800 (0-900) /uL Eos # (Auto) 300 (0-450) /uL Baso # (Auto) 100 (0-100) /uL PT 12.3 (10.1-12.7) SECONDS INR 1.1 (0.9-1.3) APTT 36 D (26.4-36.2) SECONDS Sodium 137 (137-145) mmol/L Potassium 4.0 (3.4-5.1) mmol/L Chloride 105 (98-107) mmol/L Carbon Dioxide 26 (22-32) mmol/L BUN 12 (7-17) mg/dL Creatinine 0.63 (0.52-1.04) mg/dL Estimated GFR > 60.0 (>60) mL/min BUN/Creatinine Ratio 19.0 (6-22) Glucose 90 (70-100) mg/dL Calcium 9.4 (8.4-10.2) mg/dL Total Bilirubin 0.4 (0.2-1.3) mg/dL AST 28 (14-36) IU/L ALT 21 (<35) IU/L Alkaline Phosphatase 125 (38-126) U/L Total Protein 6.8 (6.3-8.2) g/dL Albumin 4.1 (3.5-5.0) g/dL Globulin 2.7 (1.7-4.1) g/dL Albumin/Globulin Ratio 1.5 (1.0-2.8) Imaging Data US - DVT: Radiologist's Impression: [address] [address] Ultrasound Report Signed Patient: Hien Yeager EMR#: [id number] : 1980Acct:[id number] Age/Sex: 39 / FDate of Service: 02/25/20 Loc: ED Accession Number: [id number] Procedure: US perip venous low extrem bi Ordering Provider: Harpreet Holman MD PROCEDURE: US PERIP VENOUS LOW EXTREM BI INDICATIONS: PAIN; EDEMA; HX DVT TECHNIQUE: Real-time imaging, as well as color and pulse Doppler interrogation, were performed of the deep veins of both legs from the inguinal ligament to the popliteal fossa. COMPARISON: [facility], CT, CT ANGIO CHEST ABDOMEN PELVIS, 02/07/2020, 13:2 8. [facility], , US PERIPH VENOUS LOW EXTREM LT, 02/07/2020, 16:45. FINDINGS: Right: The common femoral, femoral and popliteal veins are normally compressible, and free of intraluminal thrombus. Color and pulse Doppler demonstrate normal phasic intravascular flow. There is normal augmentation response to distal compression maneuver. Left: The common femoral, femoral and popliteal veins are normally compressible, and free of intraluminal thrombus. Color and pulse Doppler demonstrate normal phasic intravascular flow. There is normal augmentation response to distal compression maneuver. IMPRESSION: No DVT demonstrated in either lower extremity. Thrombus seen in the left lower extremity is no longer identified. Dictated by: Zack Power M.D. on 02/25/2020 at 20:26 Approved by: Zack Power M.D. on 02/25/2020 at 20:28 CT scan angiogram chest abdomen pelvis: Radiologist's Impression: [address] [address] [address] Scan Report Signed Patient: Hien Yeager EMR#: [id number] : 1980Acct:[id number] Age/Sex: 39 / FDate of Service: 02/25/20 Loc: ED Accession Number: [id number] Procedure: CT angio chest abdomen pelvis Ordering Provider: Harpreet Holman MD PROCEDURE: CT ANGIO CHEST ABDOMEN PELVIS INDICATIONS: DVT history, lower abdominal discomfort TECHNIQUE: Precontrast 5 mm thick sections acquired from the lung apices to the iliac crests. After the administration of intravenous contrast, 2.5 mm thick sections again acquired from the lung apices to the iliac crests. Maximum intensity projection (MIP) oblique sagittal and coronal reformats were then acquired. For radiation dose reduction, the following was used: automated exposure control. COMPARISON: [facility], CT, CT ANGIO CHEST ABDOMEN PELVIS, 02/07/2020, 13:28. FINDINGS: Image quality: Excellent. AORTA: No acute aortic syndrome. No aneurysm. No pulmonary embolism demonstrated. Infrarenal IVC filter. CHEST: Lungs and pleura: No acute airspace opacities. No significant pulmonary nodules. No mass. No pleural effusions or pneumothorax. Central and peripheral airways are patent and normal in caliber. Mediastinum: Heart size is normal. No pericardial effusion. No mediastinal or hilar adenopathy by size criteria. Central pulmonary arteries are normal in size. Esophagus is normal in caliber. No hiatal hernias. Bones and chest wall: No axillary adenopathy by size criteria. Small thyroid nodules again seen. No suspicious bony lesions. No vertebral body compression fractures. ABDOMEN: Vasculature: Celiac trunk and mesenteric arteries are patent. Renal arteries are also patent. Solid organs: Liver is normal in size and enhancement. Gallbladder is absent. Biliary system is non dilated. Pancreas enhances normally. Pancreatic duct is unchanged. Spleen is normal in size and enhancement. No adrenal nodules. Both kidneys are normal in size and enhancement, without hydronephrosis. Peritoneum and bowel: No free fluid or air. Post Vibha-en-Y gastric bypass. Mildly prominent and fluid-filled loops of small bowel in the left lower quadrant. No bowel obstruction. Appendix is absent. Nodes and vessels: No retroperitoneal or mesenteric adenopathy by size criteria. Inferior vena cava is normal in morphology. Miscellaneous: No ventral hernias. Lower abdominal wall scarring. PELVIS: Genitourinary: Bladder is unremarkable. Miscellaneous: No inguinal hernias or adenopathy. Bones: No suspicious bony lesions. T12 sclerosis is unchanged. No vertebral body compression fractures. IMPRESSION: 1. No acute aortic syndrome. No aneurysm. 2. No pulmonary embolism. No acute airspace opacity. 3. Mildly prominent and fluid-filled loops of small bowel in the left lower abdomen. This is nonspecific but could be seen in an enteritis. No bowel obstruction demonstrated. Gastric bypass. 4. Unchanged pancreatic duct. Dictated by: Zack Power M.D. on 02/25/2020 at 21:37 Approved by: Zack Power M.D. on 02/25/2020 at 21:48 MDM Narrative Medical decision making narrative: Appropriate for discharge. Patient does have follow-up with Hematology in a few weeks. Patient does have a family physician. Hemodynamically stable time of discharge. Patient desires discharge home. No further imaging indicated this time. Discharge Plan Departure Patient Disposition: Home Clinical Impression: Bilateral leg pain Discharge Date/Time: 02/25/20 22:13 Instructions: DI for Leg Pain Activity Restrictions/Additional Instructions: No driving tonight. Continue home medications. See family doctor within a week for recheck. See the [facility] office as scheduled next month. Return if worse or if any concerns Prescriptions: No Action calcium carbonate [Calcium 600] 600 mg calcium (1,500 mg) tablet 300 mg PO TID RF: 0 multivitamin capsule 1 cap PO DAILY RF: 0 folic acid 800 mcg tablet 800 mcg PO DAILY RF: 0 biotin 10,000 mcg tablet,disintegrating 10,000 mcg PO DAILY RF: 0 Botox 200 unit recon soln 200 unit IM ONCE RF: 0 zonisamide 100 mg capsule See Rx Instructions .ROUTE .COMPLEX RF: 0 Eliquis 5 mg tablet 5 mg PO BID RF: 0 venlafaxine [Effexor XR] 75 mg capsule,extended release 24hr 225 mg PO DAILY Qty: 90 RF: 3 eletriptan 40 mg tablet See Rx Instructions PO .COMPLEX Qty: 14 RF: 2 zolpidem [Ambien] 10 mg tablet 10 mg PO BEDTIME PRN (Reason: insomnia) Qty: 30 RF: 0 Eliquis 5 mg tablet 5 mg PO BID Qty: 60 RF: 0 oxycodone-acetaminophen 5-325 mg tablet 1 tab PO Q6H PRN (Reason: pain) Qty: 14 RF: 0 Aimovig Autoinjector 140 mg/mL auto-injector 140 mg SUBCUT QMONTH Qty: 1 RF: 12 Referrals: Rox Clark DO [Primary Care Provider] - Stand Alone Forms: Work Release Note
[2020-02-25 19:47] LABS: Add Manual Diff / Slide Review NO; Basophils Absolute Auto 100 /uL (0-100); Eosinophils Absolute Auto 300 /uL (0-450); Eosinophils Percent Auto 2.8 % (2-4); Hematocrit 37.2 % (36-46); Hemoglobin 12.3 g/dL (12.0-16.0); Lymphocytes Absolute Auto 4000 /uL (1100-4500); Mean Corpuscular HGB Conc 33.1 % (30-36); Mean Corpuscular Hemoglobin 27.1 PG (26-34); Mean Corpuscular Volume 81.8 fL (80-100); Monocytes Absolute Auto 800 /uL (0-900); Monocytes Percent Auto 7.3 % (3-14); Neutrophils Absolute Auto 5500 /uL (1500-7000); Neutrophils Percent Auto 51.9 % (50-75); Platelet Count 348 X10^3/uL (150-400); Red Blood Cell Count 4.55 X10^6/uL (4.0-5.2); Red Cell Distribution Width 15.5 % (11.6-14.8); White Blood Cell Count 10.7 X10^3/uL (4.5-11.0)
[2020-02-25 19:56] LABS: INR 1.1 (0.9-1.3); Prothrombin Time 12.3 SECONDS (10.1-12.7)
[2020-02-25 19:59] LABS: PTT Partial Thromboplastin Tim 36 SECONDS (26.4-36.2)
[2020-02-25 20:00] LABS: Alanine Aminotransferase 21 IU/L (<35); Albumin 4.1 g/dL (3.5-5.0); Albumin Globulin Ratio 1.5 (1.0-2.8); Alkaline Phosphatase 125 U/L (38-126); Aspartate Aminotransferase 28 IU/L (14-36); Bilirubin Total 0.4 mg/dL (0.2-1.3); Blood Urea Nitrogen 12 mg/dL (7-17); Calcium 9.4 mg/dL (8.4-10.2); Carbon Dioxide 26 mmol/L (22-32); Chloride 105 mmol/L (98-107); Estimated Glomerular Filt Rate > 60.0 mL/min (>60); Globulin 2.7 g/dL (1.7-4.1); Glucose 90 mg/dL (70-100); HEMOLYSIS 25 (0-50); Sodium 137 mmol/L (137-145); Total Protein 6.8 g/dL (6.3-8.2)
[2020-02-25] MEDS: ONDANSETRON 4 MG/2 ML INJ IV (20:22)
[2020-02-25] MEDS: OXYCODONE/ACETAMINOPHEN 5/325 TABLET 1 TAB PO (20:22)
[2020-02-25 20:31] VITALS: BP 126/63; PULSE 70; O2SAT 100
--- NOTE | 2020-02-25 20:44 | DI.CT.S_ITS ---
PROCEDURE: CT ANGIO CHEST ABDOMEN PELVIS INDICATIONS: DVT history, lower abdominal discomfort TECHNIQUE: Precontrast 5 mm thick sections acquired from the lung apices to the iliac crests. After the administration of intravenous contrast, 2.5 mm thick sections again acquired from the lung apices to the iliac crests. Maximum intensity projection (MIP) oblique sagittal and coronal reformats were then acquired. For radiation dose reduction, the following was used: automated exposure control. COMPARISON: [facility], CT, CT ANGIO CHEST ABDOMEN PELVIS, 02/07/2020, 13:28. FINDINGS: Image quality: Excellent. AORTA: No acute aortic syndrome. No aneurysm. No pulmonary embolism demonstrated. Infrarenal IVC filter. CHEST: Lungs and pleura: No acute airspace opacities. No significant pulmonary nodules. No mass. No pleural effusions or pneumothorax. Central and peripheral airways are patent and normal in caliber. Mediastinum: Heart size is normal. No pericardial effusion. No mediastinal or hilar adenopathy by size criteria. Central pulmonary arteries are normal in size. Esophagus is normal in caliber. No hiatal hernias. Bones and chest wall: No axillary adenopathy by size criteria. Small thyroid nodules again seen. No suspicious bony lesions. No vertebral body compression fractures. ABDOMEN: Vasculature: Celiac trunk and mesenteric arteries are patent. Renal arteries are also patent. Solid organs: Liver is normal in size and enhancement. Gallbladder is absent. Biliary system is non dilated. Pancreas enhances normally. Pancreatic duct is unchanged. Spleen is normal in size and enhancement. No adrenal nodules. Both kidneys are normal in size and enhancement, without hydronephrosis. Peritoneum and bowel: No free fluid or air. Post Vibha-en-Y gastric bypass. Mildly prominent and fluid-filled loops of small bowel in the left lower quadrant. No bowel obstruction. Appendix is absent. Nodes and vessels: No retroperitoneal or mesenteric adenopathy by size criteria. Inferior vena cava is normal in morphology. Miscellaneous: No ventral hernias. Lower abdominal wall scarring. PELVIS: Genitourinary: Bladder is unremarkable. Miscellaneous: No inguinal hernias or adenopathy. Bones: No suspicious bony lesions. T12 sclerosis is unchanged. No vertebral body compression fractures. IMPRESSION: 1. No acute aortic syndrome. No aneurysm. 2. No pulmonary embolism. No acute airspace opacity. 3. Mildly prominent and fluid-filled loops of small bowel in the left lower abdomen. This is nonspecific but could be seen in an enteritis. No bowel obstruction demonstrated. Gastric bypass. 4. Unchanged pancreatic duct. Dictated by: Zack Power M.D. on 02/25/2020 at 21:37 Approved by: Zack Power M.D. on 02/25/2020 at 21:48
[2020-02-25] MEDS: SODIUM CHLORIDE 0.9% 1,000 ML 1000 ML IV (20:48)
[2020-02-25 22:13] VITALS: BP 122/60; PULSE 77; RESP 16; TEMP 37; O2SAT 99
== END 2020-02-25 22:13 | disposition home or self-care (01) ==
PROVIDERS: Emergency Provider Emergency Medicine; PCP Obstetrics & Gynecology
DX: M79.605 Pain in left leg (principal); M79.604 Pain in right leg; Z79.01 Long term (current) use of anticoagulants; I82.401 Acute embolism and thrombosis of unspecified deep veins of right lower extremity
CPT/HCPCS: 36415; 71275; 74174; 80053; 85025; 85610; 85730; 93970; 96361; 96374; 99284; J2405; Q9967

== ENCOUNTER → 2020-03-17 09:52 | Outpatient (CLI) | payer OTHER, SELFPAY ==
[2020-03-19 11:11] LABS: Protein S-Functional 62 % (63-140)
== END ==
PROVIDERS: PCP Obstetrics & Gynecology
DX: I82.4Y2 Acute embolism and thrombosis of unspecified deep veins of left proximal lower extremity (principal)
CPT/HCPCS: 36415; 85306

== ENCOUNTER → 2020-05-01 13:32 | Outpatient (CLI) | payer OTHER, SELFPAY ==
--- NOTE | 2020-05-01 | DI.US.S_ITS ---
PROCEDURE: US PERIP VENOUS LOW EXTREM LT INDICATIONS: DVT LEFT LEG, ABN. LABS TECHNIQUE: Real-time imaging, as well as color and pulse Doppler interrogation, were performed of the lower extremity deep veins from the inguinal ligament to the popliteal fossa. COMPARISON: [facility], [facility] VENOUS LOW EXTREM LT, 02/07/2020, 16:45. FINDINGS: Occlusive thrombus again visualized within the common femoral vein similar to previous examination. Thrombus previously visualized involving the greater saphenous vein and the deeper fundus femoral vein has resolved. The superficial femoral popliteal veins are patent. IMPRESSION: Persistent occlusive appearing thrombus within the left common femoral vein. Dictated by: Adrien Carpenter MERGED WITH [facility] Interpreted: Maurilio Hunter MD on 05/01/2020 at 14:55 Approved by: Maurilio Hunter M.D. on 05/01/2020 at 15:58
--- NOTE | 2020-05-01 | DI.CT.S_ITS ---
PROCEDURE: CT PELVIS WO/W CON INDICATIONS: DVT left leg/ lab TECHNIQUE: Both before and after gravity instillation of 10% Isovue contrast solution into the bladder through a Youngblood catheter, 5 mm axial images acquired from the bladder dome to the symphysis. 5 mm thick coronal and sagittal reformats were acquired. For radiation dose reduction, the following was used: automated exposure control, adjustment of mA and/or kV according to patient size. COMPARISON: [facility], CT, CT ANGIO CHEST ABDOMEN PELVIS, 02/25/2020, 20:48. FINDINGS: Image quality: Excellent. Genitourinary: Bladder wall thickness is normal. Bladder is quite distended. No contrast extravasation. Distal portions of both ureters are normal in caliber. Peritoneum and bowel: There is diffuse wall thickening involving the proximal and mid ascending colon. Visualized bowel loops are otherwise unremarkable. No pathologic free pelvic fluid. Nodes and vessels: No iliac, pelvic, or inguinal adenopathy by size criteria. Iliac vessels are normal in size. An inferior vena cava filter is in place. Uterus is surgically absent. Bones: No suspicious bony lesions. Miscellaneous: No inguinal hernias. IMPRESSION: 1. Bladder distension. 2. Wall thickening involving the proximal and mid ascending colon. Consider infectious versus inflammatory versus ischemic etiology. 3. IVC filter. Dictated by: Carter Sanchez M.D. on 05/01/2020 at 15:51 Approved by: Carter Sanchez M.D. on 05/01/2020 at 15:56
[2020-05-06 10:10] LABS: Protein S-Functional 59 % (63-140)
== END ==
PROVIDERS: PCP Obstetrics & Gynecology; Referring Provider Obstetrics & Gynecology; Visit Provider Obstetrics & Gynecology
DX: I82.412 Acute embolism and thrombosis of left femoral vein (principal); N32.89 Other specified disorders of bladder; D68.9 Coagulation defect, unspecified
CPT/HCPCS: 72194; 85306; 93971; Q9967

== ENCOUNTER → 2020-05-20 10:40 | Outpatient (CLI) | payer OTHER, SELFPAY ==
--- NOTE | 2020-05-20 | DI.US.S_ITS ---
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 COMPARISON: [facility], [facility] VENOUS LOW EXTREM BI, 02/25/2020, 19:41. [facility], PERIP VENOUS LOW EXTREM LT, 05/01/2020, 13:58. FINDINGS: Right: The common femoral, femoral and popliteal veins are normally compressible, and free of intraluminal thrombus. Color and pulse Doppler demonstrate normal phasic intravascular flow. There is normal augmentation response to distal compression maneuver. Note is made of a recanalized collateral between the left common femoral vein and the left greater saphenous vein. Left: The common femoral, femoral and popliteal veins are normally compressible, and free of intraluminal thrombus. Color and pulse Doppler demonstrate normal phasic intravascular flow. There is normal augmentation response to distal compression maneuver. IMPRESSION: Negative for deep venous thrombosis. The previously seen lower extremity deep venous thrombosis has resolved. Dictated by: Timbo Navarro M.D. on 05/20/2020 at 11:03 Approved by: Timbo Navarro M.D. on 05/20/2020 at 11:03
== END ==
PROVIDERS: PCP Obstetrics & Gynecology
DX: I87.009 Postthrombotic syndrome without complications of unspecified extremity (principal); I82.402 Acute embolism and thrombosis of unspecified deep veins of left lower extremity
CPT/HCPCS: 93970

== ENCOUNTER → 2020-06-09 14:38 | Outpatient (CLI) | payer OTHER, SELFPAY | PROVIDERS: PCP Obstetrics & Gynecology; Referring Provider Internal Medicine; Visit Provider Internal Medicine | DX: Z23 Encounter for immunization (principal) | CPT/HCPCS: 90471; 90686 ==

== ENCOUNTER 2020-09-24 17:00 | Emergency (ER) | payer OTHER, SELFPAY ==
[2020-09-24 17:05] VITALS: BP 141/93; PULSE 89; RESP 20; TEMP 36.6; O2SAT 100; BMI 32.5
--- NOTE | 2020-09-24 17:12 | DI.CT.S_ITS ---
PROCEDURE: CT HEAD/BRAIN WO CON INDICATIONS: head injury on eloquis TECHNIQUE: Noncontrast 4.5 mm thick angled axial sections acquired from the foramen magnum to the vertex, with coronal and sagittal reformats. For radiation dose reduction, the following was used: automated exposure control, adjustment of mA and/or kV according to patient size. COMPARISON: None. FINDINGS: Image quality: Excellent. CSF spaces: Basal cisterns are patent. No extra-axial fluid collections. Ventricles are normal in size and shape. Brain: No midline shift. No intracranial hemorrhage. Multiple small extra-axial calcifications noted which could represent numerous dural ossification centers or small meningiomas. Ordonez-white matter interface is normal. Skull and face: Calvarium and visualized facial bones are intact, without suspicious lesions. Sinuses: Visualized sinuses and mastoids are clear. IMPRESSION: 1. No acute intracranial disease process. 2. Multiple small extra-axial calcifications which could represent numerous dural ossifications centers or small meningiomas. Dictated by: Cynthia Muniz MD, PhD on 09/24/2020 at 16:56 Approved by: Cynthia Muniz MD, PhD on 09/24/2020 at 17:00
--- NOTE | 2020-09-24 18:09 | ED_ITS ---
HPI - Head Injury General Chief complaint: Head Injury Stated complaint: fall yesterday, hit head,blood thinners Time Seen by Provider: 09/24/20 18:03 Source: patient Mode of arrival: Ambulatory Limitations: no limitations History of Present Illness HPI Narrative: 39F nonsmoker with medical history of PE and use of anticoagulant presents with the chief complaint of an accidental fall with head injury yesterday. She knows that she must be evaluated when she suffers a head injury due to her use of anticoagulants. She is activated as a modified trauma. Her injury was suffered when she accidentally fell out of bed and she fell and hit that back of her head. She was dreaming that she and her brother were driving and she needed to switch seats with him, she then got out of bed (while asleep) and she fell and his her head. She can't say if she suffered a loss of consciousness. She's had no N/V or vision change but does have a lingering headache. She denies any numbness, weakness, or tingling. She denies any other injury such as neck, back or extremity pain. She denies any exposure to known COVID and has no runny nose, sore throat, cough or fever MD Complaint: head injury and head pain Onset (ago): day(s) Mechanism of Injury: fall Place: home Loss of Consciousness: unsure Location of injury: occipital Severity: moderate Quality: aching Radiation: none Other Injuries: none Context: other anticoagulant use Associated symptoms: denies other symptoms Related Data Home Medications Medication Instructions Recorded Confirmed biotin 10,000 mcg disintegrating 10,000 mcg PO DAILY 01/09/18 07/16/20 tablet calcium carbonate 600 mg calcium 300 mg PO TID tab 01/09/18 07/16/20 (1,500 mg) tablet folic acid 800 mcg tablet 800 mcg PO DAILY 01/09/18 07/16/20 multivitamin 1 cap PO DAILY 01/09/18 07/16/20 onabotulinumtoxinA 200 unit 200 unit IM ONCE each 05/28/19 07/16/20 solution for injection zonisamide 100 mg capsule See Rx Instructions .ROUTE 05/28/19 07/16/20 .COMPLEX cap apixaban 5 mg tablet 5 mg PO BID 10/21/19 07/16/20 Previous Rx's Medication Instructions Recorded eletriptan 40 mg tablet See Rx Instructions PO .COMPLEX 06/12/19 #14 tab apixaban [Eliquis] 5 mg PO BID #60 tab 09/11/19 venlafaxine 75 mg capsule,extended 225 mg PO DAILY #90 cap 07/07/20 release 24 hr zolpidem 10 mg tablet 10 mg PO BEDTIME PRN #20 tab 07/07/20 mirtazapine 15 mg tablet 15 mg PO BEDTIME #30 tab 07/16/20 Allergies Allergy/AdvReac Type Severity Reaction Status Date / Time Opioids - Morphine Analogues Allergy Severe Chest Pain Verified 09/24/20 17:10 Review of Systems Constitutional Constitutional: Denies chills, Denies fatigue, Denies fever(s), Denies frequent falls, Reports headache(s), Denies lethargy and Denies weakness Eyes Eyes: Denies change in vision, Denies eye discharge, Denies irritation and Denies loss of vision ENT Ears, Nose, Mouth, and Throat: Denies change in voice, Denies dizziness, Reports headache(s), Denies neck pain, Denies sore throat and Denies throat swelling Cardiovascular Cardiovascular: Denies chest pain, Denies irregular heart rhythm, Denies lightheadedness, Denies palpitations, Denies dyspnea, Denies dyspnea on exertion and Denies orthopnea Respiratory Respiratory: Denies cough, Denies dyspnea, Denies dyspnea on exertion and Denies wheezing Gastrointestinal Gastrointestinal: Denies abdominal pain, Denies change in bowel habits, Denies diarrhea, Denies nausea and Denies vomiting Musculoskeletal Musculoskeletal: Denies neck pain and Denies numbness Integumentary/Breasts Skin/Breast: Denies pruritus, Denies erythema, Denies rash and Denies wounds Neurologic Neurologic: Denies behavioral changes, Denies confusion, Denies dizziness, Denies frequent falls, Reports headache(s), Denies loss of vision, Denies numbness and Denies weakness Psychiatric Psychiatric: Denies anxiety, Denies behavioral changes, Denies confusion, Denies depression, Denies homicidal ideation and Denies suicidal ideation Endocrine Endocrine: Denies fatigue, Denies flushing and Denies palpitations Hematologic/Lymphatic Hematologic/Lymphatic: Denies easy bruising Allergic/Immunologic Allergic/Immunologic: Denies urticaria, Denies throat swelling and Denies wheezing Patient History Medical History Intractable migraine without aura and without status migrainosus Rheumatoid arthritis Surgical History History of gastric bypass Status post appendectomy Status post Status post cholecystectomy Status post hysterectomy Status post nasal septoplasty Family History Other Family history non-contributory Social History Smoking Status: Never smoker Smoking Status: Never smoker Substance Use Type: does not use Exam Narrative Exam Narrative: GENERAL: [39] year old patient appears stated age. Well- nourished, well-developed patient, in mild distress. GCS 15 HEAD: Minor pain to palpation of occiput. No swelling, abrasion, laceration or evidence of depressed skull fracture. . EYES: Pupils equal round and reactive. Extraocular motions intact. No scleral icterus. No injection or drainage. ENT: Nose without bleeding, purulent drainage. Throat without erythema, tonsillar hypertrophy or exudate. Airway patent. NECK: Trachea midline. Non tender CARDIOVASCULAR: Regular rate and rhythm without murmurs, gallops, or rubs. RESPIRATORY: Clear to auscultation. Breath sounds equal bilaterally. No wheezes, rales, or rhonchi. GASTROINTESTINAL: Abdomen soft, non-tender, nondistended. EXTREMITIES: No edema or joint tenderness. BACK: Nontender without deformity or crepitance. No flank tenderness. NEURO: AOx3. SKIN: No rash or erythema of visible areas NIH Stroke Scale 1a. LOC: Patient is alert and keenly responsive (0) 1b. LOC Questions: Patient answers both LOC questions accurately (0) 1c. LOC Commands: Patient performs both tasks correctly (0) 2. Best Gaze: Normal (0) 3. Visual: No visual loss (0) 4. Facial palsy: Normal symmetrical movements (0) 5. Motor arm: No drift (0) 6. Motor leg: No drift (0) 7. Limb ataxia: Absent (0) 8. Sensory: Normal (0) 9. Best language: No aphasia; normal (0) 10. Dysarthria: Normal (0) 11. Extinction and inattention: No abnormality (0) NIHSS: 0 Initial Vital Signs Initial Vital Signs: Vital Signs Temperature 97.9 F 09/24/20 17:05 Pulse Rate 89 09/24/20 17:05 Respiratory Rate 20 09/24/20 17:05 Blood Pressure 141/93 H 09/24/20 17:05 Pulse Oximetry 100 09/24/20 17:05 Course Orders Ordered: ED Orders 09/24/20 17:12 CT head/brain wo con Stat Vital Signs Vital signs: Vital Signs - 8 hr 09/24/20 18:35 Pulse Rate 99 H Blood Pressure 163/74 H Pulse Oximetry 100 MDM - Head Injury Imaging Data CT scan - head: Radiologist's Impression: [address] [id number] Scan ReportSigned Patient: Hien Yeager EMR#: [id number]: [id number]:[id number]/Sex: 39 / FDate of Service: 09/24/20Loc: EDAccession Number: [id number] Procedure: CT head/brain wo con Ordering Provider: Radha Ames D.O. PROCEDURE: CT HEAD/BRAIN WO CON INDICATIONS: head injury on eloquis TECHNIQUE: Noncontrast 4.5 mm thick angled axial sections acquired from the foramen magnum to the vertex, with coronal and sagittal reformats. For radiation dose reduction, the following was used: automated exposure control, adjustment of mA and/or kV according to patient size. COMPARISON: None. FINDINGS: Image quality: Excellent. CSF spaces: Basal cisterns are patent. No extra-axial fluid collections. Ventricles are normal in size and shape. Brain: No midline shift. No intracranial hemorrhage. Multiple small extra- axial calcifications noted which could represent numerous dural ossification centers or small meningiomas. Ordonez-white matter interface is normal. Skull and face: Calvarium and visualized facial bones are intact, without suspicious lesions. Sinuses: Visualized sinuses and mastoids are clear. IMPRESSION: 1. No acute intracranial disease process. 2. Multiple small extra-axial calcifications which could represent numerous dural ossifications centers or small meningiomas. Dictated by: Cynthia Muniz MD, PhD on 09/24/2020 at 16:56 Approved by: Cynthia Muniz MD, PhD on 09/24/2020 at 17:00 Discharge Plan Departure Patient Disposition: Home Clinical Impression: Closed head injury Qualifiers: Encounter type: initial encounter Qualified Code(s): S09.90XA - Unspecified injury of head, initial encounter Instructions: DI for Closed Head Injury Activity Restrictions/Additional Instructions: *You have been diagnosed with [fall with head injury on blood thinners. CT scan is negative] *What to do: *Continue to take medications as directed *Follow up with your primary care provider in 2-3 days, call for an appointment. Let them know you were seen in the Emergency Department and that we ask that you be seen in follow up *Return to ER if you should have any new, worsening or concerning symptoms Prescriptions: No Action calcium carbonate [Calcium 600] 600 mg calcium (1,500 mg) tablet 300 mg PO TID RF: 0 multivitamin capsule 1 cap PO DAILY RF: 0 folic acid 800 mcg tablet 800 mcg PO DAILY RF: 0 biotin 10,000 mcg tablet,disintegrating 10,000 mcg PO DAILY RF: 0 mirtazapine 15 mg tablet 15 mg PO BEDTIME Qty: 30 RF: 3 Botox 200 unit recon soln 200 unit IM ONCE RF: 0 zonisamide 100 mg capsule See Rx Instructions .ROUTE .COMPLEX RF: 0 Eliquis 5 mg tablet 5 mg PO BID RF: 0 venlafaxine [Effexor XR] 75 mg capsule,extended release 24hr 225 mg PO DAILY Qty: 90 RF: 3 zolpidem [Ambien] 10 mg tablet 10 mg PO BEDTIME PRN (Reason: insomnia) Qty: 20 RF: 0 eletriptan 40 mg tablet See Rx Instructions PO .COMPLEX Qty: 14 RF: 2 Eliquis 5 mg tablet 5 mg PO BID Qty: 60 RF: 0 Referrals: Rox Clark DO [Primary Care Provider] -
[2020-09-24 18:35] VITALS: BP 163/74; PULSE 99; O2SAT 100
== END 2020-09-24 18:36 | disposition home or self-care (01) ==
PROVIDERS: Emergency Provider Emergency Medicine; PCP Obstetrics & Gynecology
DX: S09.90XA Unspecified injury of head, initial encounter (principal); I74.9 Embolism and thrombosis of unspecified artery; Z79.01 Long term (current) use of anticoagulants; W19.XXXA Unspecified fall, initial encounter
CPT/HCPCS: 70450; 99283; 99284

== ENCOUNTER 2020-10-07 11:24 | Emergency (ER) | payer OTHER, SELFPAY ==
[2020-10-07] VITALS (12 sets, daily range): BP systolic 125–157; BP diastolic 69–91; PULSE 81–100; RESP 13–24; TEMP 37; O2SAT 97–100; BMI 32.5
--- NOTE | 2020-10-07 11:34 | DI.RAD.S_ITS ---
PROCEDURE: XR CHEST 1V INDICATIONS: chest pain TECHNIQUE: One view of the chest was acquired. COMPARISON: [facility], CT, CT ANGIO CHEST ABDOMEN PELVIS, 02/25/2020, 20:48. [facility], CT, CT ANGIO CHEST ABDOMEN PELVIS, 02/07/2020, 13:28. FINDINGS: Surgical changes and devices: None. Lungs and pleura: Lungs are clear. No pleural effusions or pneumothorax. Mediastinum: Mediastinal contours appear normal. Heart size is normal. Bones and chest wall: No suspicious bony lesions. Overlying soft tissues appear unremarkable. IMPRESSION: No acute pulmonary process. Dictated by: Smita Wills M.D. on 10/07/2020 at 11:51 Approved by: Smita Wills M.D. on 10/07/2020 at 11:58
[2020-10-07 11:56] LABS: Add Manual Diff / Slide Review NO; Basophils Absolute Auto 100 /uL (0-100); Basophils Percent Auto 0.8 % (0-2); Eosinophils Absolute Auto 200 /uL (0-450); Eosinophils Percent Auto 2.1 % (2-4); Hematocrit 36.9 % (36-46); Hemoglobin 11.5 g/dL (12.0-16.0); Lymphocytes Absolute Auto 3900 /uL (1100-4500); Lymphocytes Percent Auto 34.5 % (25-40); Mean Corpuscular HGB Conc 31.1 % (30-36); Mean Corpuscular Hemoglobin 24.1 PG (26-34); Mean Corpuscular Volume 77.4 fL (80-100); Monocytes Absolute Auto 700 /uL (0-900); Monocytes Percent Auto 6.4 % (3-14); Neutrophils Absolute Auto 6300 /uL (1500-7000); Neutrophils Percent Auto 56.2 % (50-75); Platelet Count 439 X10^3/uL (150-400); Red Blood Cell Count 4.77 X10^6/uL (4.0-5.2); Red Cell Distribution Width 16.7 % (11.6-14.8); White Blood Cell Count 11.3 X10^3/uL (4.5-11.0)
--- NOTE | 2020-10-07 12:01 | ED.CHESTPAIN ---
HPI - Chest Pain General Chief Complaint: Chest Pain Stated Complaint: sob,chest pain,cough, history of blood clots 630am Time Seen by Provider: 10/07/20 12:00 Source: patient Mode of arrival: Ambulatory Limitations: no limitations History of Present Illness HPI narrative: This is a 40-year-old female comes emergency department complaint of sensation that she cannot clear her throat. She is not painful she does feel like there is something sort stuck. She developed some left-sided chest pain has felt short of breath since then. This all started about 6:00 a.m.. Patient has felt a little lightheaded but no syncope she denies any cough cold or congestion otherwise. No hemoptysis. No nausea, no vomiting, no issues with bowel movements or urination. No swelling in her extremities. She has been checking her oxygen saturation and has been normal. She has a history significant for DVT after surgery, patient states she had a tummy tuck. She was ultimately diagnosed with factor 5 Leiden and protein S deficiency. Her DVT was visualized from August through April and has subsequently resolved. She does take Eliquis daily, Effexor as well as zosinamide for migraines. No other surgeries besides her tummy tuck. She states she gets chest pain when she receives morphine but denies other allergies. No tobacco, alcohol or illicit. She follows with Dr. Wooten at [facility] for her to hematology and Dr. Roberts for her primary care. She has not had any recent surgeries, long distance travel or halfway episodes of sitting or being still, she is not on any oral contraceptives or estrogen/progesterone. Related Data Home Medications Medication Instructions Recorded Confirmed multivitamin 1 cap PO DAILY 01/09/18 10/06/20 onabotulinumtoxinA 200 unit 200 unit IM ONCE each 05/28/19 10/06/20 solution for injection zonisamide 100 mg capsule See Rx Instructions .ROUTE 05/28/19 10/06/20 .COMPLEX cap Previous Rx's Medication Instructions Recorded eletriptan 40 mg tablet See Rx Instructions PO .COMPLEX 06/12/19 #14 tab apixaban [Eliquis] 5 mg PO BID #60 tab 09/11/19 venlafaxine 75 mg capsule,extended 225 mg PO DAILY #90 cap 07/07/20 release 24 hr aspirin [Enteric Coated Aspirin] 81 mg PO DAILY #30 tab 10/07/20 Allergies Allergy/AdvReac Type Severity Reaction Status Date / Time Opioids - Morphine Analogues Allergy Severe Chest Pain Verified 10/07/20 11:32 Review of Systems Review of Systems ROS Unobtainable: All systems reviewed & are unremarkable except as noted in HPI and below Patient History Medical History (Updated 10/07/20 @ 15:01 by Radha Ames DO) Intractable migraine without aura and without status migrainosus Rheumatoid arthritis Surgical History History of gastric bypass Status post appendectomy Status post Status post cholecystectomy Status post hysterectomy Status post nasal septoplasty Family History Other Family history non-contributory Social History Smoking Status: Never smoker Smoking Status: Never smoker Substance Use Type: does not use Exam Narrative Exam Narrative: GENERAL: Alert and oriented x three, in mild distress. HEENT: Head normocephalic, atraumatic, EOMI, pupils reactive, face symmetric, moist mucous membranes NECK: Supple, full range of motion CARDIOVASCULAR: Regular rate and rhythm without murmurs, rubs or gallops. RESPIRATORY: Breath sounds equal bilaterally, no wheezes rales or rhonchi. ABDOMEN: Soft, nontender. Normoactive bowel sounds all 4 quadrants. No guarding or rebound, rigidity, no mass : No CVA tenderness EXTREMITIES: Normal range of motion, no edema bilateral lower extremities. Neurovascularly intact NEUROLOGICAL: Cranial nerves II through XII grossly intact. Moving all extremities SKIN: Warm, dry, no petechiae, no rashes or lesions. Initial Vital Signs Initial Vital Signs: Vital Signs Temperature 98.6 F 10/07/20 11:28 Pulse Rate 100 H 10/07/20 11:28 Respiratory Rate 13 10/07/20 11:28 Blood Pressure 150/91 H 10/07/20 11:28 Pulse Oximetry 100 10/07/20 11:28 Scores HEART Score Heart Score history: Slightly Suspicious Heart Score EKG: Non-Specific repolarization disturbance Heart Score Age: < 45 years old Heart Score risk factors: No known risk factors Heart Score troponin: < or = to normal limit Heart Score Total: 1 PERC Score Age greater than or equal to 50 years: No Heart rate greater than or equal to 100 bpm: No Room Air O2 Sat less than 95%: No Unilateral leg swelling: No Recent trauma or surgery: No Hemoptysis: No Prior PE or DVT: Yes Hormone Use: No Total PERC Score: 1 Course Orders Ordered: ED Orders 10/07/20 11:34 XR chest 1V Stat EKG-12 Lead Stat 10/07/20 11:38 Complete Blood Count AUTO DIFF Stat Comprehensive Metabolic Panel Stat D Dimer Stat Lipase Stat Partial Thromboplastin Time Stat Prothrombin Time INR Stat Troponin & CK Cardiac Panel Stat 10/07/20 12:21 periph venous low extrem bi Stat COVID19 Stat 10/07/20 13:01 Urine Microscopic Stat 10/07/20 13:41 CT angio chest PE protocol Stat Discontinued Medications Aspirin (Aspirin Ec 325 Mg Tablet) 325 mg PO NOW ONE Stop: 10/07/20 14:51 Aspirin (Aspirin Ec 81 Mg Tablet) 81 mg PO NOW ONE Stop: 10/07/20 14:59 Last Admin: 10/07/20 15:11 Dose: 81 mg Documented by: NARAYAN Pantoprazole Sodium (Pantoprazole 40 Mg Vial) 40 mg IV NOW ONE Stop: 10/07/20 12:22 Last Admin: 10/07/20 12:30 Dose: 40 mg Documented by: NARAYAN Reevaluation(s) Reevaluation #1: Patient US reviewed with radiology and appears to have clot that was not present in same location as April and appropriately anticoagulated on Eliquis with no missed doses or changes to anticoagulation. Plan for CT PE protocol to rule out pulmonary emboli as patient is having chest pain and shortness of breath. Patient does follow with Hematology at [facility] with Dr. Wooten. Plan for consultation for anticoagulation recommendations. Patient updated and understandably frustrated and stressed by these new findings. Time: 13:45 Reevaluation #2: Spoke with patient regarding Dr. Bradshaw recommendations. Patient elects to do 81 mg enteric-coated aspirin she has had bypass in the past and conclude this with her Eliquis. 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 Time: 14:57 Consultations Consultation #1: Spoke with Dr. Wooten from hematology was [facility]. We reviewed patient's ultrasound findings, he states patient has had intermittently findings of clot thrombus and not and it is unclear if this may be new versus old after reviewing patient's ultrasounds further this does appear to be the case. Patient has not been having any active symptoms in her lower extremities they were all chest pain shortness of breath today. He recommends adding an aspirin enteric-coated to the patient's regimen of Eliquis rather than changing her to Coumadin he states is somewhat their medical decision based on recommendations. He states she had normal a protein S levels but altered activity on her most recent check. But they were initially low when she had her active clot. He states that 81 mg aspirin enteric-coated versus 324 mg either would be appropriate. He does asked the patient follow-up in 1-2 weeks at her next scheduled follow-up is not until February. Time: 14:30 Vital Signs Vital signs: Vital Signs - 8 hr 10/07/20 11:28 10/07/20 11:29 10/07/20 11:30 Temperature 98.6 F Pulse Rate 100 H 90 Respiratory Rate 13 Blood Pressure 150/91 H 150/91 H Pulse Oximetry 100 100 100 10/07/20 12:00 10/07/20 12:32 10/07/20 12:37 Temperature Pulse Rate 82 85 82 Respiratory Rate 16 17 Blood Pressure 157/80 H 125/84 Pulse Oximetry 97 100 100 10/07/20 13:00 10/07/20 13:30 10/07/20 14:02 Temperature Pulse Rate 83 81 91 H Respiratory Rate 17 14 24 Blood Pressure 132/69 145/73 H Pulse Oximetry 100 100 97 10/07/20 14:04 10/07/20 14:30 10/07/20 15:00 Temperature Pulse Rate 88 84 82 Respiratory Rate 16 16 15 Blood Pressure 147/79 H 139/89 137/81 Pulse Oximetry 100 100 100 MDM - Chest Pain Lab Data Attestation: I reviewed the patient's lab results. Result diagrams: 10/07/20 11:38 10/07/20 11:38 Labs: Lab Results 10/07/20 10/07/20 10/07/20 Range/Units 11:38 11:38 11:38 WBC 11.3 H (4.5-11.0) X10^3/uL RBC 4.77 (4.0-5.2) X10^6/uL Hgb 11.5 L (12.0-16.0) g/dL Hct 36.9 (36-46) % MCV 77.4 L (80-100) fL MCH 24.1 L (26-34) PG MCHC 31.1 (30-36) % RDW 16.7 H (11.6-14.8) % Plt Count 439 H (150-400) X10^3/uL Neut % (Auto) 56.2 (50-75) % Lymph % (Auto) 34.5 (25-40) % [place] % (Auto) 6.4 (3-14) % Eos % (Auto) 2.1 (2-4) % Baso % (Auto) 0.8 (0-2) % Neut # (Auto) 6300 (4939-4842) /uL Lymph # (Auto) 3900 (9913-3211) /uL [place] # (Auto) 700 (0-900) /uL Eos # (Auto) 200 (0-450) /uL Baso # (Auto) 100 (0-100) /uL PT 12.7 (10.1-12.7) SECONDS INR 1.1 (0.9-1.3) APTT 36 (26.4-36.2) SECONDS D-Dimer (<230) ng/mL Sodium 135 L (137-145) mmol/L Potassium 3.7 (3.4-5.1) mmol/L Chloride 103 (98-107) mmol/L Carbon Dioxide 26 (22-32) mmol/L BUN 20 H (7-17) mg/dL Creatinine 0.72 (0.52-1.04) mg/dL Estimated GFR > 60.0 (>60) mL/min BUN/Creatinine Ratio 27.8 H (6-22) Glucose 88 (70-100) mg/dL Calcium 9.3 (8.4-10.2) mg/dL Total Bilirubin 0.2 (0.2-1.3) mg/dL AST 24 (14-36) IU/L ALT 13 (<35) IU/L Alkaline Phosphatase 103 (38-126) U/L Total Creatine Kinase 59 (30-135) U/L CK-MB (CK-2) TNP CK-MB (CK-2) Rel Index TNP Troponin I < 0.012 (0.01-0.034) ng/mL Total Protein 7.6 (6.3-8.2) g/dL Albumin 4.4 (3.5-5.0) g/dL Globulin 3.2 (1.7-4.1) g/dL Albumin/Globulin Ratio 1.4 (1.0-2.8) Lipase 160 (23-300) U/L Urine RBC (0-5/HPF) Urine WBC (0-5/HPF) Ur Squamous Epith Cells (0-5/HPF) Urine Bacteria (None) Ur Culture Indicated? SARS-CoV-2 (PCR) (Negative) 10/07/20 10/07/20 10/07/20 Range/Units 11:38 12:21 13:01 WBC (4.5-11.0) X10^3/uL RBC (4.0-5.2) X10^6/uL Hgb (12.0-16.0) g/dL Hct (36-46) % MCV (80-100) fL MCH (26-34) PG MCHC (30-36) % RDW (11.6-14.8) % Plt Count (150-400) X10^3/uL Neut % (Auto) (50-75) % Lymph % (Auto) (25-40) % [place] % (Auto) (3-14) % Eos % (Auto) (2-4) % Baso % (Auto) (0-2) % Neut # (Auto) (6470-3297) /uL Lymph # (Auto) (4477-1257) /uL [place] # (Auto) (0-900) /uL Eos # (Auto) (0-450) /uL Baso # (Auto) (0-100) /uL PT (10.1-12.7) SECONDS INR (0.9-1.3) APTT (26.4-36.2) SECONDS D-Dimer < 200 (<230) ng/mL Sodium (137-145) mmol/L Potassium (3.4-5.1) mmol/L Chloride (98-107) mmol/L Carbon Dioxide (22-32) mmol/L BUN (7-17) mg/dL Creatinine (0.52-1.04) mg/dL Estimated GFR (>60) mL/min BUN/Creatinine Ratio (6-22) Glucose (70-100) mg/dL Calcium (8.4-10.2) mg/dL Total Bilirubin (0.2-1.3) mg/dL AST (14-36) IU/L ALT (<35) IU/L Alkaline Phosphatase (38-126) U/L Total Creatine Kinase (30-135) U/L CK-MB (CK-2) CK-MB (CK-2) Rel Index Troponin I (0.01-0.034) ng/mL Total Protein (6.3-8.2) g/dL Albumin (3.5-5.0) g/dL Globulin (1.7-4.1) g/dL Albumin/Globulin Ratio (1.0-2.8) Lipase (23-300) U/L Urine RBC 0-1/hpf (0-5/HPF) Urine WBC None seen (0-5/HPF) Ur Squamous Epith Cells 1-5 /hpf (0-5/HPF) Urine Bacteria None seen (None) Ur Culture Indicated? Cult not indicated SARS-CoV-2 (PCR) Negative (Negative) Point of Care Testing Test Results Negative Urine Dip Bedside Urine Glucose Negative Bedside Urine Bilirubin - Negative Bedside Urine Ketone - Negative Urine Specific [place] 1.015 Bedside Urine Occult Blood +/- Bedside Urine pH 6.5 Bedside Urine Protein - Negative Bedside Urine Urobilinogen - Negative Bedside Urine Nitrite - Negative Bedside Urine Leukocytes + 70 Esterase Imaging Data Chest x-ray: Radiologist's Impression: Hien Yeager 40 F [address] [id number] ReportSigned Patient: Hien Yeager EMR#: [id number]: [id number]:[id number]/Sex: 40 / FDate of Service: 10/07/20Loc: EDAccession Number: [id number] Procedure: XR chest 1V Ordering Provider: Radha Ames D.O. PROCEDURE: XR CHEST 1V INDICATIONS: chest pain TECHNIQUE: One view of the chest was acquired. COMPARISON: [facility], CT, CT ANGIO CHEST ABDOMEN PELVIS, 02/25/2020, 20:48. [facility], CT, CT ANGIO CHEST ABDOMEN PELVIS, 02/07/2020, 13:28. FINDINGS: Surgical changes and devices: None. Lungs and pleura: Lungs are clear. No pleural effusions or pneumothorax. Mediastinum: Mediastinal contours appear normal. Heart size is normal. Bones and chest wall: No suspicious bony lesions. Overlying soft tissues appear unremarkable. IMPRESSION: No acute pulmonary process. Dictated by: Smita Wills M.D. on 10/07/2020 at 11:51 Approved by: Smita Wills M.D. on 10/07/2020 at 11:58 US - DVT: Radiologist's Impression: ECG Data Attestation: I personally reviewed and interpreted this ECG as follows: Prior ECG tracings: not available for review Interpretation: NSR rate of 85, pr of 160, qrs of 78, qtc 442. No ST elevation or depression. Nonspecific change. No prior for review. MDM Narrative Medical decision making narrative: This is a 40-year-old female with prior DVT who arrives with complaint of difficulty sensation of clearing throat, left-sided chest pain and shortness of breath that started about 6:00 a.m.. Patient's troponin EKG are negative. She has known Factor 5 Leiden and protein S deficiency. She is on Eliquis daily was anxious about developing another blood clot. Patient chest x-ray shows no acute changes. Her labs otherwise show a mild anemia fairly consistent with prior labs. She has a mild leukocytosis also intermittently consistent with prior labs. Platelets are 439 no left for chief does noted. Is elevated at 20 with a sodium 135 otherwise normal electrolytes. Ddimer is negative but B/L DVT US shows what appears to be no intraluminal partial thrombus in comparison to prior. Patient had CT PE protocal obtained for her chest pain, shortness of breath and consultation with he hematology service Discharge Plan Departure Patient Disposition: Home Clinical Impression: DVT (deep venous thrombosis) Qualifiers: DVT location: lower extremity Instructions: DI for Deep Vein Thrombosis Prescriptions: New aspirin [Enteric Coated Aspirin] 81 mg tablet,delayed release (DR/EC) 81 mg PO DAILY Qty: 30 RF: 0 No Action multivitamin capsule 1 cap PO DAILY RF: 0 Botox 200 unit recon soln 200 unit IM ONCE RF: 0 zonisamide 100 mg capsule See Rx Instructions .ROUTE .COMPLEX RF: 0 venlafaxine [Effexor XR] 75 mg capsule,extended release 24hr 225 mg PO DAILY Qty: 90 RF: 3 eletriptan 40 mg tablet See Rx Instructions PO .COMPLEX Qty: 14 RF: 2 Eliquis 5 mg tablet 5 mg PO BID Qty: 60 RF: 0 Referrals: Rox Clark DO [Primary Care Provider] - Stand Alone Forms: Work Release Note
[2020-10-07 12:02] LABS: INR 1.1 (0.9-1.3); Prothrombin Time 12.7 SECONDS (10.1-12.7)
[2020-10-07 12:03] LABS: Alanine Aminotransferase 13 IU/L (<35); Albumin 4.4 g/dL (3.5-5.0); Albumin Globulin Ratio 1.4 (1.0-2.8); Alkaline Phosphatase 103 U/L (38-126); Aspartate Aminotransferase 24 IU/L (14-36); BUN Creatinine Ratio 27.8 (6-22); Bilirubin Total 0.2 mg/dL (0.2-1.3); Blood Urea Nitrogen 20 mg/dL (7-17); Calcium 9.3 mg/dL (8.4-10.2); Carbon Dioxide 26 mmol/L (22-32); Chloride 103 mmol/L (98-107); Creatine Kinase 59 U/L (30-135); Estimated Glomerular Filt Rate > 60.0 mL/min (>60); Globulin 3.2 g/dL (1.7-4.1); Glucose 88 mg/dL (70-100); HEMOLYSIS < 15 (0-50); Lipase 160 U/L (23-300); Potassium 3.7 mmol/L (3.4-5.1); Sodium 135 mmol/L (137-145); Total Protein 7.6 g/dL (6.3-8.2)
[2020-10-07 12:05] LABS: PTT Partial Thromboplastin Tim 36 SECONDS (26.4-36.2)
[2020-10-07 12:13] LABS: Troponin I < 0.012 ng/mL (0.01-0.034)
--- NOTE | 2020-10-07 12:21 | DI.US.S_ITS ---
PROCEDURE: US PERIP VENOUS LOW EXTREM BI INDICATIONS: hx of DVT, chest pain, short of breath TECHNIQUE: Real-time imaging, as well as color and pulse Doppler interrogation, were performed of the deep veins of both legs from the inguinal ligament to the popliteal fossa. COMPARISON: [facility], [facility] VENOUS LOW EXTREM LT, 05/01/2020, 13:58. [facility], [facility] VENOUS LOW EXTREM BI, 05/20/2020, 11:01. FINDINGS: Right: The common femoral, femoral and popliteal veins are normally compressible, and free of intraluminal thrombus. Color and pulse Doppler demonstrate normal phasic intravascular flow. There is normal augmentation response to distal compression maneuver. Left: There is partially occlusive thrombus seen within the common femoral vein and the proximal left femoral vein. The remainder of the deep venous system is free of thrombus. IMPRESSION: Partially occlusive thrombus seen on the left involving the common femoral vein and the proximal femoral vein. Negative for right-sided deep venous thrombosis. Dictated by: Timbo Navarro M.D. on 10/07/2020 at 12:23 Approved by: Timbo Navarro M.D. on 10/07/2020 at 12:25
[2020-10-07] MEDS: PANTOPRAZOLE 40 MG VIAL IV (12:30)
[2020-10-07 13:02] LABS: Bacteria Urine None Seen; WBC Urine None Seen (0-5/HPF)
[2020-10-07 13:03] LABS: COVID19 -Nasal RAPID Negative (Negative)
[2020-10-07 13:06] LABS: RBC Urine 0-1/HPF (0-5/HPF); Squamous Epithelial Cell Urine 1-5 /HPF (0-5/HPF)
[2020-10-07 13:07] LABS: Culture Indicated Urine Cult Not Indicated
[2020-10-07 13:12] LABS: D Dimer < 200 ng/mL (<230)
--- NOTE | 2020-10-07 13:41 | DI.CT.S_ITS ---
PROCEDURE: CT ANGIO CHEST PE PROTOCOL INDICATIONS: chest pain, short of breath TECHNIQUE: After the administration of intravenous contrast, 2 mm thick sections acquired from the pulmonary apices to the posterior costophrenic angles. 3-dimensional maximum intensity projection (MIP) coronal and sagittal reformats were then acquired through the thorax. For radiation dose reduction, the following was used: automated exposure control, adjustment of mA and/or kV according to patient size. COMPARISON: [facility], CT, CT ANGIO CHEST ABDOMEN PELVIS, 02/07/2020, 13:28. [facility], CT, CT ANGIO CHEST ABDOMEN PELVIS, 02/25/2020, 20:48. [facility], US, US PERIPH VENOUS LOW EXTREM BI, 10/07/2020, 12:47. [facility], CT, CT ANGIO CHEST PE PROTOCOL, 10/07/2019, 8:11. [facility], CR, XR CHEST 1V, 10/07/2020, 11:39. FINDINGS: Image quality: Excellent. Pulmonary arteries: Pulmonary arteries are normal in size, and demonstrate no intraluminal filling defects to suggest central pulmonary embolism. Lungs and pleura: Lungs are clear. No pleural effusions or pneumothorax. Central and peripheral airways are patent. Mediastinum: Heart size is normal, without pericardial effusion. No mediastinal or hilar adenopathy. Thoracic aorta is normal in caliber and enhancement. Esophagus is normal in caliber. There is a small hiatal hernia. Bones and chest wall: No suspicious bony lesions. The previously described sclerosis of T12 is off of the field of view of the current study. Ribs and thoracic spine appear intact throughout. Thyroid gland demonstrates bilateral nodules, as before. No axillary or supraclavicular adenopathy. Abdomen: Bariatric surgery can be seen. The visualized portions of the upper abdominal structures are otherwise unremarkable for imaging technique. IMPRESSION: Negative for deep venous thrombosis. Incidental note is made of: Bilateral thyroid nodules Small hiatal hernia Bariatric surgery Dictated by: Timbo Navarro M.D. on 10/07/2020 at 13:13 Approved by: Timbo Navarro M.D. on 10/07/2020 at 13:17
[2020-10-07] MEDS: ASPIRIN EC 81 MG TABLET PO (15:11)
== END 2020-10-07 15:22 | disposition home or self-care (01) ==
PROVIDERS: Emergency Provider Emergency Medicine; PCP Obstetrics & Gynecology
DX: I82.412 Acute embolism and thrombosis of left femoral vein (principal); I82.4Y2 Acute embolism and thrombosis of unspecified deep veins of left proximal lower extremity; Z79.01 Long term (current) use of anticoagulants; R07.9 Chest pain, unspecified; R06.02 Shortness of breath; R42 Dizziness and giddiness; Z20.822 Contact with and (suspected) exposure to COVID-19
CPT/HCPCS: 36415; 71045; 71275; 80053; 81003; 81015; 81025; 82550; 83690; 84484; 85025; 85379; 85610; 85730; 87635; 93005; 93010; 93970; 96374; 99284; C9803; C9113; Q9967